=== PATIENT | female | born 1975 | race Caucasian/White ===

== ENCOUNTER 2017-01-20 13:21 | Inpatient (IN) | payer OTHER ==
[2017-01-20] MEDS ORDERED: SODIUM CHLORIDE 0.9% 1,000 ML IV STA (15:16)
--- NOTE | 2017-01-20 15:24 | ED ---
General Adult HPI - General Source: patient, RN notes reviewed Mode of arrival: ambulatory Limitations: no limitations <Larry Russell - Last Filed: 01/20/17 17:48> <Guillermo Smith - Last Filed: 01/20/17 18:27> - General Chief complaint: Abdominal Pain Stated complaint: abdominal pain Time Seen by Provider: 01/20/17 15:10 - History of Present Illness Initial comments: Patient 41-year-old female who presents emergency room today with a chief complaint of increased abdominal pain. She states that over the last 3 days and unable have bowel movement. She does admit that she's been passing small amount of gas. She does admit that she's felt nauseated. States had chills. States never had similar symptoms in the past denies any other complaints. Patient denies any recent shortness of breath, chest pain, back pain, vomiting, numbness or tingling, dysuria or hematuria, constipation or diarrhea, headaches or visual changes, or any other complaints. (Larry Russell) - Related Data Home Medications Medication Instructions Recorded Confirmed ALPRAZolam [Xanax] 0.5 mg PO DAILY PRN 01/20/17 01/20/17 Levothyroxine Sodium [Synthroid] 112 mcg PO DAILY 01/20/17 01/20/17 buPROPion HCL [Wellbutrin SR] 150 mg PO DAILY 01/20/17 01/20/17 metFORMIN HCL [Metformin HCl] 500 mg PO BID 01/20/17 01/20/17 Allergies Allergy/AdvReac Type Severity Reaction Status Date / Time No Known Allergies Allergy Verified 01/20/17 15:36 Review of Systems ROS Other: All systems not noted in ROS Statement are negative. <Larry Russell - Last Filed: 01/20/17 17:48> ROS Other: All systems not noted in ROS Statement are negative. <Guillermo Smith - Last Filed: 01/20/17 18:27> ROS Statement: Those systems with pertinent positive or pertinent negative responses have been documented in the HPI. Past Medical History Past Medical History: Thyroid Disorder History of Any Multi-Drug Resistant Organisms: None Reported Past Surgical History: Orthopedic Surgery Additional Past Surgical History / Comment(s): right knee Past Psychological History: No Psychological Hx Reported Smoking Status: Former smoker Past Alcohol Use History: None Reported Past Drug Use History: None Reported <Larry Russell - Last Filed: 01/20/17 17:48> General Exam Limitations: no limitations <Larry Russell - Last Filed: 01/20/17 17:48> <Guillermo Smith - Last Filed: 01/20/17 18:27> - General Exam Comments Initial Comments: General: The patient is awake and alert, in no distress, and does not appear acutely ill. Eye: Pupils are equal, round and reactive to light, extra-ocular movements are intact. No nystagmus. There is normal conjunctiva bilaterally. No signs of icterus. Ears, nose, mouth and throat: There are moist mucous membranes and no oral lesions. Neck: The neck is supple, there is no tenderness or JVD. Cardiovascular: There is a regular rate and rhythm. No murmur, rub or gallop is appreciated. Respiratory: Lungs are clear to auscultation, respirations are non-labored, breath sounds are equal. No wheezes, stridor, rales, or rhonchi. Gastrointestinal: No medicines abdomen. Normal bowel sounds. Abdomen soft on palpation. Patient does have tenderness midline and left lower quadrant. No rebound tenderness. No guarding. Musculoskeletal: Normal ROM, no tenderness. Strength 5/5. Sensation intact. Pulses equal bilaterally 2+. Neurological: A&O x 3. CN II-XII intact, There are no obvious motor or sensory deficits. Coordination appears grossly intact. Speech is normal. Skin: Skin is warm and dry and no rashes or lesions are noted. Psychiatric: Cooperative, appropriate mood & affect, normal judgment. (Larry Russell) Medical Decision Making - Lab Data Result diagrams: 01/20/17 15:54 01/20/17 15:54 <Larry Russell - Last Filed: 01/20/17 17:48> - Lab Data Result diagrams: 01/20/17 15:54 01/20/17 15:54 <Guillermo Smith - Last Filed: 01/20/17 18:27> - Medical Decision Making Patient's CT of the abdomen and pelvis shows moderate marked sigmoid diverticulitis with tiny extraperitoneal perforation into the sigmoid mesocolon , but without pneumoperitoneum or abscess. Labs reviewed that showed 12,000 white count. Patient's vital stable. No fever. Patient reexamined at this time resting comfortably. Will be started on antibiotics of Levaquin and Flagyl here in the emergency room. Patient will be continued on IV antibiotics admitted to the hospital with consult the surgeon. (Larry Russell) Medical decision-making. The patient had a CAT scan of the abdomen and the diagnosis per radiology is moderate marked sigmoid diverticulitis, with tiny extraperitoneal perforation into the sigmoid mesocolon, but without pneumoperitoneum or abscess. As read by Dr. Angel Lo. The case will be admitted to Dr. garland service, I spoke to Maddy nurse practitioner, and on-[facility] - Lab Data Lab Results 01/20/17 01/20/17 01/20/17 Range/Units 15:54 15:54 15:54 WBC 12.3 H (3.8-10.6) k/uL RBC 4.46 (3.80-5.40) m/uL Hgb 13.7 (11.4-16.0) gm/dL Hct 41.5 (34.0-46.0) % MCV 93.1 (80.0-100.0) fL MCH 30.7 (25.0-35.0) pg MCHC 33.0 (31.0-37.0) g/dL RDW 13.2 (11.5-15.5) % Plt Count 345 (150-450) k/uL Neutrophils % 75 % Lymphocytes % 13 % Monocytes % 7 % Eosinophils % 2 % Basophils % 1 % Neutrophils # 9.2 H (1.3-7.7) k/uL Lymphocytes # 1.6 (1.0-4.8) k/uL Monocytes # 0.9 (0-1.0) k/uL Eosinophils # 0.3 (0-0.7) k/uL Basophils # 0.1 (0-0.2) k/uL Sodium 139 (137-145) mmol/L Potassium 4.0 (3.5-5.1) mmol/L Chloride 104 (98-107) mmol/L Carbon Dioxide 24 (22-30) mmol/L Anion Gap 11 mmol/L BUN 9 (7-17) mg/dL Creatinine 0.58 (0.52-1.04) mg/dL Est GFR (MDRD) Af Amer >60 (>60 ml/min/1.73 sqM) Est GFR (MDRD) Non-Af >60 (>60 ml/min/1.73 sqM) Glucose 89 (74-99) mg/dL Calcium 9.4 (8.4-10.2) mg/dL Total Bilirubin 0.5 (0.2-1.3) mg/dL AST 25 (14-36) U/L ALT 34 (9-52) U/L Alkaline Phosphatase 81 (38-126) U/L Total Protein 6.8 (6.3-8.2) g/dL Albumin 3.9 (3.5-5.0) g/dL Amylase 46 (30-110) U/L Lipase 58 (23-300) U/L Urine Color Yellow Urine Appearance Cloudy H (Clear) Urine pH 5.5 (5.0-8.0) Ur Specific [place] 1.013 (1.001-1.035) Urine Protein Trace H (Negative) Urine Glucose (UA) Negative (Negative) Urine Ketones Negative (Negative) Urine Blood Negative (Negative) Urine Nitrite Negative (Negative) Urine Bilirubin Negative (Negative) Urine Urobilinogen <2.0 (<2.0) mg/dL Ur Leukocyte Esterase Moderate H (Negative) Urine RBC 2 (0-5) /hpf Urine WBC 20 H (0-5) /hpf Ur Squamous Epith Cells 12 H (0-4) /hpf Urine HCG, Qual (Not Detectd) 01/20/17 Range/Units 15:54 WBC (3.8-10.6) k/uL RBC (3.80-5.40) m/uL Hgb (11.4-16.0) gm/dL Hct (34.0-46.0) % MCV (80.0-100.0) fL MCH (25.0-35.0) pg MCHC (31.0-37.0) g/dL RDW (11.5-15.5) % Plt Count (150-450) k/uL Neutrophils % % Lymphocytes % % Monocytes % % Eosinophils % % Basophils % % Neutrophils # (1.3-7.7) k/uL Lymphocytes # (1.0-4.8) k/uL Monocytes # (0-1.0) k/uL Eosinophils # (0-0.7) k/uL Basophils # (0-0.2) k/uL Sodium (137-145) mmol/L Potassium (3.5-5.1) mmol/L Chloride (98-107) mmol/L Carbon Dioxide (22-30) mmol/L Anion Gap mmol/L BUN (7-17) mg/dL Creatinine (0.52-1.04) mg/dL Est GFR (MDRD) Af Amer (>60 ml/min/1.73 sqM) Est GFR (MDRD) Non-Af (>60 ml/min/1.73 sqM) Glucose (74-99) mg/dL Calcium (8.4-10.2) mg/dL Total Bilirubin (0.2-1.3) mg/dL AST (14-36) U/L ALT (9-52) U/L Alkaline Phosphatase (38-126) U/L Total Protein (6.3-8.2) g/dL Albumin (3.5-5.0) g/dL Amylase (30-110) U/L Lipase (23-300) U/L Urine Color Urine Appearance (Clear) Urine pH (5.0-8.0) Ur Specific [place] (1.001-1.035) Urine Protein (Negative) Urine Glucose (UA) (Negative) Urine Ketones (Negative) Urine Blood (Negative) Urine Nitrite (Negative) Urine Bilirubin (Negative) Urine Urobilinogen (<2.0) mg/dL Ur Leukocyte Esterase (Negative) Urine RBC (0-5) /hpf Urine WBC (0-5) /hpf Ur Squamous Epith Cells (0-4) /hpf Urine HCG, Qual Not Detected (Not Detectd) Disposition Time of Disposition: 17:45 <Larry Russell - Last Filed: 01/20/17 17:48> <Guillermo Smith - Last Filed: 01/20/17 18:27> Clinical Impression: Acute diverticulitis Disposition[facility] Condition: Stable Referrals: Tiarra Espinoza DO [Primary Care Provider] - 1-2 days
[2017-01-20 16:22] LABS: Basophils # (A) 0.1 k/uL (0-0.2); Basophils % (A) 1 %; CH 31.4; CHCM 33.8; Eosinophils # (A) 0.3 k/uL (0-0.7); Eosinophils % (A) 2 %; HCT 41.5 % (34.0-46.0); HDW 2.11; HGB 13.7 gm/dL (11.4-16.0); Luc % (Auto) 2; Lymphocytes # (A) 1.6 k/uL (1.0-4.8); Lymphocytes % (A) 13 %; MCH 30.7 pg (25.0-35.0); MCV 93.1 fL (80.0-100.0); Mean Platelet Volume 6.8; Monocytes # (A) 0.9 k/uL (0-1.0); Monocytes % (A) 7 %; Neutrophils # (A) 9.2 k/uL (1.3-7.7); Neutrophils % (A) 75 %; RBC 4.46 m/uL (3.80-5.40); RDW 13.2 % (11.5-15.5); WBC 12.3 k/uL (3.8-10.6); WBC (Perox) 11.44
[2017-01-20 16:28] LABS: Appearance,Urine Cloudy (Clear); Bilirubin,Urine Negative (Negative); Glucose,Urine (UA) Negative (Negative); Ketones,Urine Negative (Negative); Leukocyte Esterase,Urine Moderate (Negative); Nitrite,Urine Negative (Negative); PH, Urine 5.5 (5.0-8.0); Particle Count 7655; Protein,Urine Trace (Negative); RBC,Urine 2 /hpf (0-5); Specific Gravity,Urine 1.013 (1.001-1.035); Squamous Epithelial Cell,Urine 12 /hpf (0-4); UA Billing (MACRO vs. MICRO) MICRO; Urobilinogen,Urine <2.0 mg/dL (<2.0); WBC,Urine 20 /hpf (0-5)
[2017-01-20 16:32] LABS: ALT 34 U/L (9-52); AST 25 U/L (14-36); Alkaline Phosphatase 81 U/L (38-126); Amylase 46 U/L (30-110); Anion Gap 11 mmol/L; Blood Urea Nitrogen 9 mg/dL (7-17); Calcium 9.4 mg/dL (8.4-10.2); Carbon Dioxide 24 mmol/L (22-30); Chloride 104 mmol/L (98-107); Glucose 89 mg/dL (74-99); Non-African American GFR(MDRD) >60 (>60 ml/min/1.73 sqM); Sodium 139 mmol/L (137-145); Total Bilirubin 0.5 mg/dL (0.2-1.3); Total Protein 6.8 g/dL (6.3-8.2)
[2017-01-20] MEDS ORDERED: RX INFO: IV CONTRAST WAS GIVEN 1 EACH MISC MISCELLANE PRN (16:42)
--- NOTE | 2017-01-20 17:39 | CT ---
EXAMINATION TYPE: CT abdomen pelvis w con DATE OF EXAM: 01/20/2017 COMPARISON: NONE HISTORY: Constipation and abdominal distention x3 days CT DLP: 1272.9 mGycm Automated exposure control for dose reduction was used. TECHNIQUE: Helical acquisition of images was performed from the lung bases through the pelvis. CONTRAST: Performed without Oral Contrast and with IV Contrast, patient injected with 100 mL of Omnipaque 300. FINDINGS: LUNG BASES: No significant abnormality is appreciated. LIVER/GB: No significant abnormality is appreciated. PANCREAS: No significant abnormality is seen. SPLEEN: No significant abnormality is seen. ADRENALS: No significant abnormality is seen. KIDNEYS: No significant abnormality is seen. FREE AIR: No free air is visualized. RETROPERITONEAL ADENOPATHY: None visualized REPRODUCTIVE ORGANS: No significant abnormality is seen URINARY BLADDER: No significant abnormality is seen. PELVIC ADENOPATHY: None visualized. OSSEOUS STRUCTURES: No significant abnormality is seen. BOWEL: There is moderate-marked reticulation of the sigmoid mesocolon immediately cephalad to the mi d sigmoid, with tiny gas bubbles within the sigmoid mesocolon. There is no pneumoperitoneum. There is no pneumatosis. No bowel obstruction and no focal fluid collections. Remainder of the hollow viscer a are unremarkable. IMPRESSION: MODERATE-MARKED SIGMOID DIVERTICULITIS, WITH TINY EXTRAPERITONEAL PERFORATION INTO THE SIGMOID [place] ANTOINETTE, BUT WITHOUT PNEUMOPERITONEUM OR ABSCESS.
[2017-01-20] MEDS ORDERED: metroNIDAZOLE-NS PMX 500 MG in SALINE 1 100ML.BAG IVPB STA (17:48)
[2017-01-20] MEDS ORDERED: LEVOFLOXACIN 500MG-D5W PMX 500 MG in DEXTROSE/WATER 1 100ML.BAG IVPB STA (17:48)
[2017-01-20] MEDS ORDERED: ONDANSETRON 4 MG/2 ML VIAL IVP PRN (18:02)
[2017-01-20] MEDS ORDERED: HYDROmorphone 1 MG/ML 1 ML SYRINGE IV PRN (18:02)
[2017-01-20] MEDS ORDERED: NALOXONE 0.4 MG/ML 1 ML VIAL IV PRN (18:02)
[2017-01-20] MEDS ORDERED: SODIUM CHLORIDE 0.9% 1,000 ML IV ONE (18:02)
[2017-01-20 20:29] VITALS: BMI 33.9
--- NOTE | 2017-01-20 20:30 | P.GSCN ---
History of Present Illness Consult date: 01/20/17 Reason for Consult: Diverticulitis. Requesting physician: Harjeet Sierra History of present illness: The patient is a 41-year-old female who comes to the hospital after developing increasing abdominal pain particularly of the left lower quadrant. She reports having a prior colonoscopy over 10 years ago where polyps were identified including diverticulosis. In the last 2 days she reports her abdominal pain has been worse since her presentation. She completed a CT of the abdomen and pelvis demonstrated a microperforation with diverticulitis. She reports intermittent obstructions. Since admission, her abdominal pain has improved. Review of Systems CONSTITUTIONAL: Denies any fever or chills. Denies recent weight loss. HEENT: Denies any trouble with vision, hearing or nosebleeds. No difficulty swallowing. LYMPHATIC: The patient denies any lumps and bumps around the neck. ENDOCRINE: Has thyroid disorders. Has blood sugar glucose intolerance. RESPIRATORY: Denies pneumonia. Denies any troubles with breathing or dyspnea on exertion. CARDIOVASCULAR: Denies any chest pain, palpitations, or recent heart attacks. GASTROINTESTINAL: Reports intermittent constipation as well as bowel blockages. Last colonoscopy over 10 years ago with polyps. GENITOURINARY: Denies any blood in urine or increased urinary frequency. MUSCULOSKELETAL: Denies any back pain, stiffness, joint arthritis. NEUROLOGIC: Denies any numbness or tingling along the distal extremities. No seizure disorders or headaches. PSYCHIATRIC: Has depression. No suidical ideation. Has anxiety. HEMATOLOGIC: Denies any abnormal bleeding or bruising. Past Medical History Past Medical History: Thyroid Disorder History of Any Multi-Drug Resistant Organisms: None Reported Past Surgical History: Orthopedic Surgery Additional Past Surgical History / Comment(s): right knee Past Psychological History: No Psychological Hx Reported Smoking Status: Former smoker Past Alcohol Use History: None Reported Past Drug Use History: None Reported Medications and Allergies Home Medications Medication Instructions Recorded Confirmed Type ALPRAZolam [Xanax] 0.5 mg PO DAILY PRN 01/20/17 01/20/17 History Levothyroxine Sodium [Synthroid] 112 mcg PO DAILY 01/20/17 01/20/17 History buPROPion HCL [Wellbutrin SR] 150 mg PO DAILY 01/20/17 01/20/17 History metFORMIN HCL [Metformin HCl] 500 mg PO BID 01/20/17 01/20/17 History Allergies Allergy/AdvReac Type Severity Reaction Status Date / Time No Known Allergies Allergy Verified 01/20/17 15:36 Surgical - Exam Vital Signs Temp Pulse Resp BP Pulse Ox 98.4 F 90 20 132/86 99 01/20/17 13:43 01/20/17 13:43 01/20/17 13:43 01/20/17 13:43 01/20/17 13:43 GENERAL: Well developed and in no acute distress. Pleasant. HEENT: No sclera icterus. Extraocular movements grossly intact. Moist buccal mucosa. Head is atraumatic, normocephalic. Hears conversational speech. No nasal drainage. NECK: Supple without lymphadenopathy. No JV distention. CHEST: Non-labored respirations and equal bilateral excursions. CARDIOVASCULAR: Regular rate and rhythm. Palpable 2+ radial pulses. ABDOMEN: Soft. Nondistended. No diffuse tenderness or peritonitis. No guarding of the left lower quadrant. MUSCULOSKELETAL: No clubbing, cyanosis or edema. NEUROLOGIC: No focal or lateralizing signs. PSYCH: Appropriate affect. Alert and oriented to person, place and time. Results - Labs 01/20/17 15:54 01/20/17 15:54 Abnormal Lab Results - Last 24 Hours (Table) 01/20/17 01/20/17 Range/Units 15:54 15:54 WBC 12.3 H (3.8-10.6) k/uL Neutrophils # 9.2 H (1.3-7.7) k/uL Urine Appearance Cloudy H (Clear) Urine Protein Trace H (Negative) Ur Leukocyte Esterase Moderate H (Negative) Urine WBC 20 H (0-5) /hpf Ur Squamous Epith Cells 12 H (0-4) /hpf Diabetes panel 01/20/17 Range/Units 15:54 Sodium 139 (137-145) mmol/L Potassium 4.0 (3.5-5.1) mmol/L Chloride 104 (98-107) mmol/L Carbon Dioxide 24 (22-30) mmol/L BUN 9 (7-17) mg/dL Creatinine 0.58 (0.52-1.04) mg/dL Glucose 89 (74-99) mg/dL Calcium 9.4 (8.4-10.2) mg/dL AST 25 (14-36) U/L ALT 34 (9-52) U/L Alkaline Phosphatase 81 (38-126) U/L Total Protein 6.8 (6.3-8.2) g/dL Albumin 3.9 (3.5-5.0) g/dL Calcium panel 01/20/17 Range/Units 15:54 Calcium 9.4 (8.4-10.2) mg/dL Albumin 3.9 (3.5-5.0) g/dL Pituitary panel 01/20/17 Range/Units 15:54 Sodium 139 (137-145) mmol/L Potassium 4.0 (3.5-5.1) mmol/L Chloride 104 (98-107) mmol/L Carbon Dioxide 24 (22-30) mmol/L BUN 9 (7-17) mg/dL Creatinine 0.58 (0.52-1.04) mg/dL Glucose 89 (74-99) mg/dL Calcium 9.4 (8.4-10.2) mg/dL Adrenal panel 01/20/17 Range/Units 15:54 Sodium 139 (137-145) mmol/L Potassium 4.0 (3.5-5.1) mmol/L Chloride 104 (98-107) mmol/L Carbon Dioxide 24 (22-30) mmol/L BUN 9 (7-17) mg/dL Creatinine 0.58 (0.52-1.04) mg/dL Glucose 89 (74-99) mg/dL Calcium 9.4 (8.4-10.2) mg/dL Total Bilirubin 0.5 (0.2-1.3) mg/dL AST 25 (14-36) U/L ALT 34 (9-52) U/L Alkaline Phosphatase 81 (38-126) U/L Total Protein 6.8 (6.3-8.2) g/dL Albumin 3.9 (3.5-5.0) g/dL - Imaging CT scan - abdomen: report reviewed, image reviewed CT scan - pelvis: report reviewed, image reviewed (Localized perforation of the sigmoid colon without diffuse for air.) Assessment and Plan (1) Hypothyroidism Status: Acute (2) Diabetes type 2, controlled Status: Acute (3) Obesity (BMI 30.0-34.9) Status: Acute (4) History of colonic polyps Status: Acute (5) Acute diverticulitis Status: Acute Plan: 1. Clinically, her abdominal pain has improved. No acute surgical intervention needed. 2. I discussed with her outpatient colonoscopy at least 6 weeks after her acute event. 3. Nothing by mouth for tonight however may start clear liquid in the morning. 4. Recommend antibiotics including as outpatient at least for 2 weeks. 5. Will follow in the interim. Thank you for this kind consultation.
[2017-01-20] MEDS ORDERED: ALPRAZolam 0.5 MG TAB PO PRN (21:36)
[2017-01-20] MEDS: ENOXAPARIN 40 MG/0.4 ML SYRINGE SQ SCH (22:38)
[2017-01-21] MEDS: metroNIDAZOLE-NS PMX 500 MG in SALINE 1 100ML.BAG IVPB SCH ×3 (00:11→16:03)
[2017-01-21 04:43] VITALS: RESP 16
--- NOTE | 2017-01-21 05:53 | HP ---
DATE OF ADMISSION: 01/20/2017 PRESENTING COMPLAINT: Abdominal pain. HISTORY OF PRESENTING COMPLAINT: This is a 41-year-old patient of Dr. Espinoza. Chronic stable medical conditions include hypothyroid, possibly metabolic syndrome, depression, anxiety. Four days started increasing lower abdominal pain, first 2 days the pain became severe. Patient has had ( ), settled down a bit then developed a fever then pain came back and worse again. Patient decided to come in. CT scan of the abdomen confirmed a diverticulitis with maybe microperforation. Patient made n.p.o. and admitted with IV antibiotics. Daughter is at the bedside. Has had some slight nausea, no vomiting. REVIEW OF SYSTEMS: CONSTITUTIONAL: Fever, tired. HEENT: None. RESPIRATORY: None. CARDIOVASCULAR: None. GASTROINTESTINAL: As above. GENITOURINARY: None. MUSCULOSKELETAL: None. DERMATOLOGIC: None. HEMATOLOGIC: None. LYMPHATIC: None. PSYCHIATRY: None. NEUROLOGICAL: None. PAST MEDICAL HISTORY: Hypothyroid, depression, anxiety. PAST SURGICAL HISTORY: Orthopedic surgery right knee. SOCIAL HISTORY: Smoked for 20 years about a pack a day; stopped 16 years ago. 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 with 2 children at home. FAMILY HISTORY: Pancreatic cancer. HOME MEDICATIONS: 1. Metformin 500 mg b.i.d. 2. Wellbutrin SR 150 mg daily. 3. Synthroid 112 mcg p.o. daily. 4. Xanax 0.5 p.o. daily p.r.n. ALLERGIES: None. ON EXAMINATION: VITAL SIGNS ON PRESENTATION: Temperature 98.4, pulse 90, respiration 20, blood pressure 132/86, pulse ox 99% on room air. GENERAL APPEARANCE: Well built, BMI of 33.9, sitting up, tired appearing. EYES: Pupils equal. Conjunctivae normal. HEENT: Oral cavity normal. NECK: JVD not raised. Mass not palpable. RESPIRATORY: Effort normal. LUNGS: Slightly decreased breath sounds. CARDIOVASCULAR: First and second sounds normal. No edema. ABDOMEN: Left-sided tenderness. No guarding or rigidity. Liver and spleen not palpable. LYMPHATIC: No lymph nodes palpable of the neck or axillae. PSYCHIATRY: Alert and oriented x3. Mood and affect normal. NEUROLOGICAL: Pupils equal. Cranial nerves grossly intact. Power and sensation grossly intact. INVESTIGATIONS: White count 12.3, hemoglobin 13.7. Potassium 4.0. BUN and creatinine are normal. UA ( ) leukocyte esterase and squamous epithelial. CT scan of the abdomen and pelvis moderate marked reticulation of the sigmoid mesocolon with tiny gas bubble. ASSESSMENT: 1. Acute severe sigmoid diverticulitis with extraperitoneal perforation with no obvious abscess formation. 2. Hypothyroidism. 3. Possibly metabolic syndrome. 4. Depression, anxiety, not otherwise specified. PLAN: Patient was put on IV Levaquin and Flagyl, IV fluids, made n.p.o. General surgery was consulted. Home medications are resumed. Care was discussed with the patient and care plan was discussed.
[2017-01-21] MEDS ORDERED: LEVOTHYROXINE 112 MCG TAB PO SCH (06:30)
[2017-01-21 07:05] LABS: Basophils % (A) 0 %; CH 31.3; CHCM 34.2; Eosinophils # (A) 0.3 k/uL (0-0.7); Eosinophils % (A) 3 %; HCT 38.7 % (34.0-46.0); HDW 2.23; HGB 12.9 gm/dL (11.4-16.0); Luc # (Auto) 0.23; Luc % (Auto) 3; Lymphocytes # (A) 1.2 k/uL (1.0-4.8); Lymphocytes % (A) 15 %; MCH 30.7 pg (25.0-35.0); MCHC 33.3 g/dL (31.0-37.0); Mean Platelet Volume 6.3; Monocytes # (A) 0.7 k/uL (0-1.0); Monocytes % (A) 8 %; Neutrophils # (A) 5.6 k/uL (1.3-7.7); Neutrophils % (A) 71 %; RBC 4.21 m/uL (3.80-5.40); RDW 12.9 % (11.5-15.5); WBC (Perox) 8.47
[2017-01-21 07:19] LABS: ALT 34 U/L (9-52); AST 21 U/L (14-36); Alkaline Phosphatase 65 U/L (38-126); Anion Gap 7 mmol/L; Blood Urea Nitrogen 6 mg/dL (7-17); Calcium 8.7 mg/dL (8.4-10.2); Carbon Dioxide 24 mmol/L (22-30); Chloride 110 mmol/L (98-107); Glucose 92 mg/dL (74-99); Non-African American GFR(MDRD) >60 (>60 ml/min/1.73 sqM); Potassium 4.1 mmol/L (3.5-5.1); Sodium 141 mmol/L (137-145); Total Bilirubin 0.6 mg/dL (0.2-1.3); Total Protein 5.9 g/dL (6.3-8.2)
[2017-01-21] MEDS: metFORMIN 500 MG TAB PO SCH ×2 (07:26→18:34)
[2017-01-21] MEDS: ENOXAPARIN 40 MG/0.4 ML SYRINGE SQ SCH (08:17)
[2017-01-21] MEDS ORDERED: buPROPion SR 150 MG TABLET.ER PO SCH (09:00)
--- NOTE | 2017-01-21 11:58 | P.PN ---
Subjective 41-year-old female being seen this morning states abdominal pain has significantly improved tolerating a clear liquid diet being seen at the request of the attending for abdominal pain. CAT scan of the abdomen pelvis has been reviewed. Shows localized perforation of the sigmoid colon without diffuse air. Was no surgical intervention needed at this time. The plan of care was reinforced with the patient patient will be seen in the outpatient setting in 4-6 weeks at that time would discussed out patient colonoscopy patient states passing gas but no stool Objective - Vital Signs Vital signs: Vital Signs Temp 97.3 F L 01/21/17 07:25 Pulse 72 01/21/17 07:25 Resp 16 01/21/17 07:25 BP 140/73 01/21/17 07:25 Pulse Ox 99 01/21/17 07:25 Intake & Output 01/20/17 01/21/17 01/21/17 18:59 06:59 18:59 Intake Total 100 Balance 100 Weight 95.254 kg Intake: Intake, IV Titration 100 Amount metroNIDAZOLE-NS PMX 500 100 mg In Saline 1 100ml.bag @ 100 mls/hr IVPB Q8HR DALI Rx#:[id number] Oral 0 Other: Voiding Method Toilet # Voids 1 2 - Exam Physical exam 41-year-old female resting in bed appears in no acute distress states abdominal pain has improved Lungs essentially clear adequate air movement sats are 99% on room air Heart S1-S2 audible regular Abdomen soft nontender not distended bowel tones present passing gas no stool tolerating diet of clear liquids states hungry Extremities no edema noted - Labs CBC & Chem 7: 01/21/17 06:36 01/21/17 06:36 Labs: Abnormal Lab Results - Last 24 Hours (Table) 01/20/17 01/20/17 01/21/17 Range/Units 15:54 15:54 06:36 WBC 12.3 H (3.8-10.6) k/uL Neutrophils # 9.2 H (1.3-7.7) k/uL Chloride 110 H (98-107) mmol/L BUN 6 L (7-17) mg/dL Total Protein 5.9 L (6.3-8.2) g/dL Albumin 3.3 L (3.5-5.0) g/dL Urine Appearance Cloudy H (Clear) Urine Protein Trace H (Negative) Ur Leukocyte Esterase Moderate H (Negative) Urine WBC 20 H (0-5) /hpf Ur Squamous Epith Cells 12 H (0-4) /hpf Assessment and Plan Plan: Impression Present on admission abdominal pain suspect due to localized perforation of the sigmoid colon without diffuse air Obesity BMI 33 Abdominal pain present on admission likely due to Acute diverticulitis as evident on a CAT scan of the abdomen pelvis Type 2 diabetes controlled History of colon polyps Plan Continue antibiotics in the outpatient setting for at least 2 weeks Clear liquid diet could be advanced as tolerated Outpatient follow-up with Dr. Olea in 6 weeks for outpatient colonoscopy No surgical intervention indicated at this time Will follow in the interim The above dictated assessment and findings were discussed with dr Olea. Impression and the plan of care have been dictated as directed. Megan Sanford nurse practitioner acting as a scribe for Lefty
[2017-01-21] MEDS ORDERED: LEVOFLOXACIN 500MG-D5W PMX 500 MG in DEXTROSE/WATER 1 100ML.BAG IVPB SCH (18:00)
--- NOTE | 2017-01-21 20:45 | P.PN ---
Progress Note - Text Patient seen and evaluated. She is tolerating diet. She is passing flatus. She had a bowel movement. Abdominal pain improved. Agreeable with discharge with follow-up in the office in 1 week.
--- NOTE | 2017-01-21 20:46 | P.DS ---
Providers Date of admission: 01/20/17 18:19 Expected date of discharge: 01/21/17 Attending physician: Harjeet Sierra Consults: 01/20/17 18:17 Consult Physician Routine Consulting Provider: Johanna Olea Consult Reason/Comments: Reticulitis Do you want consulting provider notified?: Yes Primary care physician: Tiarra Espinoza - Discharge Diagnosis(es) (1) Hypothyroidism Current Visit: Yes Status: Acute (2) Diabetes type 2, controlled Current Visit: Yes Status: Acute (3) Obesity (BMI 30.0-34.9) Current Visit: Yes Status: Acute (4) History of colonic polyps Current Visit: Yes Status: Acute (5) Acute diverticulitis Current Visit: Yes Status: Acute Hospital Course: The patient is a 41-year-old female who presented with acute onset left lower quadrant abdominal pain for several days. CT of the abdomen and pelvis was consistent with acute diverticulitis. General surgery was consulted. She was placed on antibiotics which she responded well. Prior to discharge, she was passing flatus, having bowel movements, and tolerating diet. Her abdominal pain had resolved. Pertinent Studies: CT of the abdomen and pelvis consistent with perforated diverticulitis Patient Condition at Discharge: Stable Plan - Discharge Summary New Discharge Prescriptions: New Ciprofloxacin HCl [Cipro] 500 mg PO Q12HR #20 tablet metroNIDAZOLE [Flagyl] 500 mg PO TID #30 tab No Action Levothyroxine Sodium [Synthroid] 112 mcg PO DAILY ALPRAZolam [Xanax] 0.5 mg PO DAILY PRN PRN Reason: Anxiety metFORMIN HCL [Metformin HCl] 500 mg PO BID buPROPion HCL [Wellbutrin SR] 150 mg PO DAILY Discharge Medication List ALPRAZolam [Xanax] 0.5 mg PO DAILY PRN 01/20/17 [History] Levothyroxine Sodium [Synthroid] 112 mcg PO DAILY 01/20/17 [History] buPROPion HCL [Wellbutrin SR] 150 mg PO DAILY 01/20/17 [History] metFORMIN HCL [Metformin HCl] 500 mg PO BID 01/20/17 [History] Ciprofloxacin HCl [Cipro] 500 mg PO Q12HR #20 tablet 01/21/17 [Rx] metroNIDAZOLE [Flagyl] 500 mg PO TID #30 tab 01/21/17 [Rx] Follow up Appointment(s)/Referral(s): Tiarra Espinoza DO [Primary Care Provider] - 1-2 days Johanna Olea MD [STAFF PHYSICIAN] - 01/28/17 (Please call to confirm a time) Patient Instructions/Handouts: Diverticulitis (DC), Diverticulitis Diet (DC), Perforated Bowel (DC) Activity/Diet/Wound Care/Special Instructions: Avoid steak, heavy meats. Recommend soups, broth, yogurt and liquids until seen by surgeon. Discharge Disposition: HOME SELF-CARE
[2017-01-21 21:36] VITALS: BP 142/82; PULSE 66; TEMP 98.2
--- NOTE | 2017-01-21 22:10 | PN ---
DATE OF SERVICE: 01/21/2017 PRESENTING COMPLAINT: Abdominal pain. INTERVAL HISTORY: This is a patient who presented with acute diverticulitis with a microperforation. Abdominal pain is better. Has not had a bowel movement, getting IV antibiotics. Did try some clear liquids. Review of systems done for constitutional, cardiovascular, GI, pulmonary; relevant findings as above. Current medications are reviewed that include: 1. IV Levaquin and 2. IV Flagyl. On examination, temperature 97.3, pulse 72, respirations 16, blood pressure 140/73, pulse ox 99% on room air. GENERAL APPEARANCE: Lying in bed, not in distress. EYES: Pupils equal. Conjunctivae normal. NECK: JVD not raised. Mass not palpable. RESPIRATORY: Effort normal. LUNGS: Slightly decreased breath sounds. CARDIOVASCULAR: First and second sounds normal. No edema. ABDOMEN: Left-sided deep tenderness. No guarding or rigidity. Liver and spleen not palpable. PSYCHIATRY: Alert and oriented x3. Mood and affect normal. INVESTIGATIONS: White count 8, hemoglobin 12.9. Potassium 4.1. ASSESSMENT: 1. Acute severe sigmoid diverticulitis with extraperitoneal perforation with clinical improvement. 2. Hypothyroidism. 3. Possibly metabolic syndrome. 4. Depression, anxiety, not otherwise specified. Continue the patient on IV antibiotics. Diet is being advanced per Surgery. Will watch the patient today, see how she does tomorrow. Patient encouraged to get out of bed.
== END 2017-01-21 21:00 | disposition home or self-care (01) | DRG 392 ==
LOC: EC 13:21 → 6PED 18:19
PROVIDERS: ADMIT Hospitalist; ATTEND Hospitalist
DX: K57.20 Diverticulitis of large intestine with perforation and abscess without bleeding (principal); F32.9 Major depressive disorder, single episode, unspecified; E03.9 Hypothyroidism, unspecified; F41.9 Anxiety disorder, unspecified; E11.9 Type 2 diabetes mellitus without complications; E66.9 Obesity, unspecified; Z68.33 Body mass index [BMI] 33.0-33.9, adult; Z87.891 Personal history of nicotine dependence; Z86.010 Personal history of colon polyps; Z79.84 Long term (current) use of oral hypoglycemic drugs; Z79.899 Other long term (current) drug therapy; Z80.0 Family history of malignant neoplasm of digestive organs
CPT/HCPCS: 36415; 74177; 80053; 81001; 81025; 82150; 83690; 85025; 87040; 96361; 96365; 99285

== ENCOUNTER 2017-02-26 10:37 | Day surgery (SDC) | payer OTHER ==
[2017-02-25 09:09] VITALS: BMI 34.2
--- NOTE | 2017-02-26 08:36 | P.GSHP ---
History of Present Illness H&P Date: 02/26/17 CHIEF COMPLAINT: GERD and change in bowel habits HISTORY OF PRESENT ILLNESS: The patient is a 41-year-old female who presents reports gastroesophageal reflux disease and change in bowel habits. Upper and lower endoscopy were offered for further evaluation and management. PAST MEDICAL HISTORY: Please see list. PAST SURGICAL HISTORY: Please see list. MEDICATIONS: Please see list. ALLERGIES: Please see list. SOCIAL HISTORY: No illicit drug use FAMILY HISTORY: No reports of Crohn disease or ulcerative colitis. REVIEW OF ORGAN SYSTEMS: CONSTITUTIONAL: No reports of fevers or chills. GI: Denies any blood in stools or constipation. PHYSICAL EXAM: VITAL SIGNS: Stable GENERAL: Well-developed pleasant in no acute distress. HEENT: No scleral icterus. Extraocular movements grossly intact. Moist buccal mucosa. NECK: Supple without lymphadenopathy. CHEST: Unlabored respirations. Equal bilateral excursions. CARDIOVASCULAR: Regular rate and rhythm. Distal 2+ pulses. ABDOMEN: Soft, nondistended. MUSCULOSKELETAL: No clubbing, cyanosis, or edema. ASSESSMENT: 1. Gastroesophageal reflux disease 2. Change in bowel habits. PLAN: 1. Recommend proceeding with an upper and lower endoscopy Past Medical History Past Medical History: GERD/Reflux, Osteoarthritis (OA), Thyroid Disorder Additional Past Medical History / Comment(s): DIVERTICULITS (HOSPITALIZED 01/20-., STATES NO DIABETES-TAKING METFORMIN FOR WEIGHT LOSS). , STATES HERPES- NO CURRENT OUTBREAK. History of Any Multi-Drug Resistant Organisms: None Reported Past Surgical History: Orthopedic Surgery, Tonsillectomy Additional Past Surgical History / Comment(s): right knee (HEMATOMA), COLONOSCOPY WITH POLYPS. Past Anesthesia/Blood Transfusion Reactions: No Reported Reaction Past Psychological History: No Psychological Hx Reported Additional Psychological History / Comment(s): . Smoking Status: Former smoker Past Alcohol Use History: Occasional Additional Past Alcohol Use History / Comment(s): QUIT SMOKING 12 YEARS AGO(2004 ). SMOKED 1 PPD., SMOKED APPROX 20 YEARS. Past Drug Use History: Marijuana Additional Drug Use History / Comment(s): CURRENT MARIJUANA USE. - Past Family History Father Family Medical History: Cancer Additional Family Medical History / Comment(s): Pancreatic Cancer Mother Family Medical History: Cancer Additional Family Medical History / Comment(s): Stomach Cancer Sister(s) Family Medical History: Cancer Additional Family Medical History / Comment(s): 1 SISTER= KIDNEY CANCER. 1 SISTER= TONGUE CANCER Medications and Allergies Home Medications Medication Instructions Recorded Confirmed Type ALPRAZolam [Xanax] 0.5 mg PO DAILY PRN 01/20/17 02/25/17 History Levothyroxine Sodium [Synthroid] 112 mcg PO DAILY 01/20/17 02/25/17 History metFORMIN HCL [Metformin HCl] 500 mg PO BID 01/20/17 02/25/17 History Rx For Herpes (Unknown Name) 1 tab PO DAILY 02/25/17 History Allergies Allergy/AdvReac Type Severity Reaction Status Date / Time No Known Allergies Allergy Verified 02/25/17 08:58
[~2017-02-26 10:37] MED LIST: LACTATED RINGERS 1,000 ML IV SCH; LIDOCAINE 1% 20 ML VIAL (10MG/ML) FOR IV START INTRADERMA PRN
[2017-02-26 11:09] VITALS: RESP 16; TEMP 98
[2017-02-26] MEDS ORDERED: LIDOCAINE 1% INJ 10MG/ML (20 ML MDV) ONE (11:10)
[2017-02-26] MEDS ORDERED: PROPOFOL 10 MG/ML 20 ML VIAL IV ONE (11:10)
--- NOTE | 2017-02-26 11:19 | P.PCN ---
Date of Procedure: 02/26/17 Preoperative Diagnosis: Postoperative Diagnosis: Procedure(s) Performed: Implants: Indications for Procedure: Operative Findings: Description of Procedure: PREOPERATIVE DIAGNOSIS: Gastroesophageal reflux disease. POSTOPERATIVE DIAGNOSIS: Gastritis. Gastroesophageal reflux disease. Diaphragmatic hiatal hernia without obstruction. OPERATION: Esophagogastroduodenoscopy with biopsies along antrum. SURGEON: Johanna Olea MD ANESTHESIA: MAC. INDICATIONS: The patient is a 41-year-old female who presents with a history of reflux disease. Benefits and risks of the procedure were described. Informed consent was obtained. DESCRIPTION: The patient was brought into the endoscopy suite and laid in the left lateral decubitus position. An Olympus gastroscope was passed along the posterior oropharynx down to the distal esophagus where the squamocolumnar junction was encountered at 37 cm from the incisors. The stomach was entered and no bile reflux was found. Additional findings are listed below. Biopsies with cold forceps were obtained of the antrum. The first through third portion of the duodenum was examined and unremarkable. Retroflexion of the scope confirmed Hill grade 4 lower esophageal valve. The squamocolumnar junction demostrated LA grade A erosive esophagitis. The stomach was desufflated. The patient tolerated the procedure well. FINDINGS: Squamocolumnar junction 37 cm from the incisors. Diaphragmatic hiatus at 40 cm. Hiatal hernia 3 cm, fixed. Hill grade 4 lower esophageal valve. LA grade A erosive esophagitis. No active duodenitis. Chronic gastritis. RECOMMENDATIONS: Further recommendations pending results of pathology report. Upper endoscopy as needed. Will benefit from antireflux surgical procedure
[2017-02-26 11:22] LABS: Glucose,Whole Blood 104 mg/dL (75-99)
--- NOTE | 2017-02-26 11:37 | P.PCN ---
Date of Procedure: 02/26/17 Preoperative Diagnosis: Postoperative Diagnosis: Procedure(s) Performed: Implants: Indications for Procedure: Operative Findings: Description of Procedure: PREOPERATIVE DIAGNOSIS: Diverticulitis. Personal history of colon polyps. Family history of gastrointestinal cancer. POSTOPERATIVE DIAGNOSIS: Diverticulitis. Personal history of colon polyps. Family history of gastrointestinal cancer. Colon polyp, ascending colon. External hemorrhoids. OPERATION: Colonoscopy to the ileocecal valve and appendiceal orifice. Colonoscopy with cold forceps biopsy ascending colon. SURGEON: Johanna Olea MD. ANESTHESIA: MAC. INDICATIONS: The patient is a 41-year-old female who presents following a diverticulitis attack. She reports previous history of colon polyps over 10+ years ago. Benefits and risks were described and informed consent was obtained. DESCRIPTION OF PROCEDURE: The patient had undergone Gatorade, MiraLAX and Dulcolax prep. She had been brought into the operating room and laid in the left lateral decubitus position. After adequate intravenous sedation, the rectum was examined with 2% lidocaine jelly. External hemorrhoids were encountered. The rectal tone was within normal limits. No lesions were palpated in the rectal vault. An Olympus colonoscope was advanced until the ileocecal valve and appendiceal orifice were clearly viewed. The prep was excellent with clear visualization of the mucosal folds. The scope was removed with visualization of each mucosal fold. Scattered diverticulosis with recent diverticulitis was encountered. At the ascending colon, 3 mm hyperplastic polyp was cold forceps biopsy. Focal colitis was found of the sigmoid colon. Grade 2 internal hemorrhoids was identified without active bleeding or inflammation. The colon was desufflated. The patient had tolerated the procedure well. Withdrawal time was over 6 minutes. FINDINGS: Internal hemorrhoids, grade 2 External prolapsed hemorrhoids. No arteriovenous malformations. At the ascending colon, 3 mm hyperplastic polyp was cold forceps biopsy. Focal colitis was found of the sigmoid colon. RECOMMENDATIONS: Lower endoscopy in 3 (2019) to 5 years per screening guidelines for high-risk familial and personal history. Plan - Discharge Summary New Discharge Prescriptions: No Action Levothyroxine Sodium [Synthroid] 112 mcg PO DAILY ALPRAZolam [Xanax] 0.5 mg PO DAILY PRN PRN Reason: Anxiety metFORMIN HCL [Metformin HCl] 500 mg PO BID Rx For Herpes (Unknown Name) 1 tab PO DAILY Discharge Medication List ALPRAZolam [Xanax] 0.5 mg PO DAILY PRN 01/20/17 [History] Levothyroxine Sodium [Synthroid] 112 mcg PO DAILY 01/20/17 [History] metFORMIN HCL [Metformin HCl] 500 mg PO BID 01/20/17 [History] Rx For Herpes (Unknown Name) 1 tab PO DAILY 02/25/17 [History] Follow up Appointment(s)/Referral(s): Johanna Olea MD [STAFF PHYSICIAN] - 03/11/17 Patient Instructions/Handouts: Hiatal Hernia (DC), Diverticulitis (DC) Discharge Disposition: HOME SELF-CARE
[2017-02-26 12:08] VITALS: BP 140/82; PULSE 58
[2017-02-26] MEDS ORDERED: IV FLUID CONTINUATION 1,000 ML IV ONE (12:19)
== END 2017-02-26 12:25 | disposition home or self-care (01) ==
LOC: ORWHC2ENDO 10:37
PROVIDERS: ATTEND Surgery Plastic and Reconstructive Surgery
DX: K29.50 Unspecified chronic gastritis without bleeding (principal); K57.32 Diverticulitis of large intestine without perforation or abscess without bleeding; K63.5 Polyp of colon; K21.0 Gastro-esophageal reflux disease with esophagitis; K44.9 Diaphragmatic hernia without obstruction or gangrene; K64.1 Second degree hemorrhoids; K64.8 Other hemorrhoids; K52.9 Noninfective gastroenteritis and colitis, unspecified; R19.4 Change in bowel habit; Z86.010 Personal history of colon polyps; Z80.0 Family history of malignant neoplasm of digestive organs; M19.90 Unspecified osteoarthritis, unspecified site; E07.9 Disorder of thyroid, unspecified; E11.9 Type 2 diabetes mellitus without complications; Z79.84 Long term (current) use of oral hypoglycemic drugs; Z79.899 Other long term (current) drug therapy; Z87.891 Personal history of nicotine dependence
CPT/HCPCS: 81025; 88305; 88342; 45380; 43239; J2001; J2704

== ENCOUNTER 2018-10-03 18:18 | Observation (INO) | payer OTHER ==
[2018-10-03] MEDS ORDERED: ASPIRIN 81 MG PO STA (18:57)
--- NOTE | 2018-10-03 19:23 | ED ---
General Adult HPI - General Chief complaint: Recheck/Abnormal Lab/Rx Stated complaint: abnormal poss levels-sent by Time Seen by Provider: 10/03/18 18:36 Source: patient Mode of arrival: wheelchair Limitations: no limitations - History of Present Illness Initial comments: 43-year-old female presenting with chief complaint of elevated potassium. Patient states the last month she's been feeling rundown had low energy since she presented to her primary care doctor for basic blood work. She was told that her potassium was 6.3 that she come to the ER. She denies any history of hyperkalemia or kidney dysfunction. Review of systems patient states that she' s been having left-sided chest pressure with exertion or with stress. She states it will resolve spontaneously. She's never had a heart attack before, does not have hypertension, high cholesterol, nor does she smoke. She denies ever having a stress test. She denies any shortness of breath or history of DVT /PE, recent surgery, active cancer. Denies any cough. - Related Data Home Medications Medication Instructions Recorded Confirmed ALPRAZolam [Xanax] 0.5 mg PO DAILY PRN 01/20/17 02/26/17 Levothyroxine Sodium [Synthroid] 112 mcg PO DAILY 01/20/17 02/26/17 metFORMIN HCL [Metformin HCl] 500 mg PO BID 01/20/17 02/26/17 Rx For Herpes (Unknown Name) 1 tab PO DAILY 02/25/17 Previous Rx's Medication Instructions Recorded Nystatin 100,000 Unit/gm Powd 1 applic TOPICAL BID #60 powder 03/11/17 [Mycostatin Powder] Omeprazole 40 mg PO DAILY #30 capsule. 03/11/17 Allergies Allergy/AdvReac Type Severity Reaction Status Date / Time No Known Allergies Allergy Verified 02/26/17 10:55 Review of Systems ROS Statement: Those systems with pertinent positive or pertinent negative responses have been documented in the HPI. Review of Systems Constitutional: Denies fever, chills Eyes: Denies change in vision, Denies pain Ears, nose, mouth, throat: Denies headaches, Denies sore throat Cardiovascular: Positive chest pain. Denies palpitations Respiratory: Denies shortness of breath, Denies cough Gastrointestinal: Denies abdominal pain. Denies nausea, vomiting, diarrhea. Genitourinary: Denies hematuria, Denies infections Musculoskeletal: Denies pain, Denies swelling Integumentary: Denies rash Neurological: Denies headache, focal weakness, focal numbness Psychiatric: Denies anxiety, Denies depression Hematologic/Lymphatic: Denies easy bleeding or bruising ROS Other: All systems not noted in ROS Statement are negative. Past Medical History Past Medical History: GERD/Reflux, Osteoarthritis (OA), Thyroid Disorder Additional Past Medical History / Comment(s): DIVERTICULITS (HOSPITALIZED 01/20-., STATES NO DIABETES-TAKING METFORMIN FOR WEIGHT LOSS). , STATES HERPES- NO CURRENT OUTBREAK. History of Any Multi-Drug Resistant Organisms: None Reported Past Surgical History: Orthopedic Surgery, Tonsillectomy Additional Past Surgical History / Comment(s): right knee (HEMATOMA), COLONOSCOPY WITH POLYPS. Past Anesthesia/Blood Transfusion Reactions: No Reported Reaction Past Psychological History: No Psychological Hx Reported Smoking Status: Former smoker Past Alcohol Use History: Occasional Past Drug Use History: Marijuana - Past Family History Father Family Medical History: Cancer Additional Family Medical History / Comment(s): Pancreatic Cancer Mother Family Medical History: Cancer Additional Family Medical History / Comment(s): Stomach Cancer Sister(s) Family Medical History: Cancer Additional Family Medical History / Comment(s): 1 SISTER= KIDNEY CANCER. 1 SISTER= TONGUE CANCER General Exam - General Exam Comments Initial Comments: General: Awake, alert, No acute Distress HENT: Normocephalic. Atraumatic Eyes: PERRL. EOMI. No scleral icterus. No injected conjunctiva Neck: Full ROM Chest/Lungs: Clear to auscultation bilaterally. No wheezing, rhonchi, or rales Cardiac: Regular rate, rhythm. No murmurs or rubs Abdomen/GI: Soft, nontender, nondistended. No rebound, guarding, or rigidity. Musculoskeletal: Full ROM Skin: Warm, dry, intact Neurologic: A/Ox3, no weakness, no sensory deficit, no abnormal gait, no coordination deficit Limitations: no limitations Course Vital Signs 10/03/18 10/03/18 10/03/18 18:27 18:30 19:14 Temperature 98.3 F 99.3 F Pulse Rate 90 86 Pulse Rate [ 80 Horseradish Maker ] Respiratory 18 17 Rate Blood Pressure 132/78 127/68 O2 Sat by Pulse 98 97 Oximetry 10/03/18 20:27 Temperature Pulse Rate 86 Pulse Rate [ Horseradish Maker ] Respiratory 17 Rate Blood Pressure 114/51 O2 Sat by Pulse 96 Oximetry Medical Decision Making - Medical Decision Making 43-year-old female presenting with chief complaint of hyperkalemia initial exam the patient is awake alert and is in no acute distress her vital signs are stable review of systems patient stated that she's been having chest pain with exertion or stress and that has been increasing in severity and frequency. She today at the pain while at rest. Her EKG shows normal sinus rhythm at a rate of [address] segment elevation, depression. No prolonged QT/QTc or [place] interval. No dysrythmia noted. This time the patient requires admission for stress test is I'm concerned that her chest pain is anginal in nature. She has not had a stress test before. I spoke with Dr. Montaño is agreeable to admission. - Lab Data Result diagrams: 10/03/18 19:12 10/03/18 19:12 Lab Results 10/03/18 10/03/18 10/03/18 Range/Units 19:12 19:12 19:12 WBC 12.6 H (3.8-10.6) k/uL RBC 4.69 (3.80-5.40) m/uL Hgb 14.4 (11.4-16.0) gm/dL Hct 44.3 (34.0-46.0) % MCV 94.4 (80.0-100.0) fL MCH 30.8 (25.0-35.0) pg MCHC 32.6 (31.0-37.0) g/dL RDW 13.2 (11.5-15.5) % Plt Count 307 (150-450) k/uL Neutrophils % 70 % Lymphocytes % 19 % Monocytes % 6 % Eosinophils % 3 % Basophils % 1 % Neutrophils # 8.9 H (1.3-7.7) k/uL Lymphocytes # 2.3 (1.0-4.8) k/uL Monocytes # 0.7 (0-1.0) k/uL Eosinophils # 0.4 (0-0.7) k/uL Basophils # 0.1 (0-0.2) k/uL Sodium 140 (137-145) mmol/L Potassium 4.5 (3.5-5.1) mmol/L Chloride 108 H (98-107) mmol/L Carbon Dioxide 24 (22-30) mmol/L Anion Gap 8 mmol/L BUN 15 (7-17) mg/dL Creatinine 0.60 (0.52-1.04) mg/dL Est GFR (CKD-EPI)AfAm >90 (>60 ml/min/1.73 sqM) Est GFR (CKD-EPI)NonAf >90 (>60 ml/min/1.73 sqM) Glucose 108 H (74-99) mg/dL Calcium 9.7 (8.4-10.2) mg/dL Troponin I <0.012 (0.000-0.034) ng/mL Disposition Clinical Impression: Chest pain at rest Disposition: ADMITTED IP TO THIS HOSP Referrals: Tiarra Espinoza DO [Primary Care Provider] - 1-2 days Decision Date: 10/03/18 Decision Time: 21:13
[2018-10-03 19:28] LABS: Basophils # (A) 0.1 k/uL (0-0.2); Basophils % (A) 1 %; Eosinophils # (A) 0.4 k/uL (0-0.7); Eosinophils % (A) 3 %; HCT 44.3 % (34.0-46.0); HGB 14.4 gm/dL (11.4-16.0); Lymphocytes # (A) 2.3 k/uL (1.0-4.8); Lymphocytes % (A) 19 %; MCH 30.8 pg (25.0-35.0); MCHC 32.6 g/dL (31.0-37.0); MCV 94.4 fL (80.0-100.0); Monocytes # (A) 0.7 k/uL (0-1.0); Monocytes % (A) 6 %; Neutrophils # (A) 8.9 k/uL (1.3-7.7); Neutrophils % (A) 70 %; Platelet Count 307 k/uL (150-450); RBC 4.69 m/uL (3.80-5.40); RDW 13.2 % (11.5-15.5); WBC 12.6 k/uL (3.8-10.6)
[2018-10-03 19:36] LABS: Anion Gap 8 mmol/L; Blood Urea Nitrogen 15 mg/dL (7-17); Calcium 9.7 mg/dL (8.4-10.2); Carbon Dioxide 24 mmol/L (22-30); Chloride 108 mmol/L (98-107); Glucose 108 mg/dL (74-99); Potassium 4.5 mmol/L (3.5-5.1); Sodium 140 mmol/L (137-145)
--- NOTE | 2018-10-03 20:26 | XR ---
EXAMINATION TYPE: XR chest 2V DATE OF EXAM: 10/03/2018 COMPARISON: NONE HISTORY: Pain TECHNIQUE: Frontal and lateral views of the chest are obtained. FINDINGS: There is no focal air space opacity, pleural effusion, or pneumothorax seen. The cardiac silhouette size is within normal limits. The osseous structures are intact. IMPRESSION: No acute cardiopulmonary process.
[2018-10-03] MEDS ORDERED: NALOXONE 0.4 MG/ML 1 ML VIAL IV PRN (21:14)
[2018-10-03] MEDS ORDERED: HYDROcodone/APAP 5-325MG 1 EACH TAB PO PRN (21:14)
[2018-10-03] MEDS ORDERED: IBUPROFEN 400 MG TAB PO PRN (21:14)
[2018-10-03] MEDS ORDERED: KETOROLAC 30 MG/ML 1 ML VIAL IVP PRN (21:14)
[2018-10-03 22:42] VITALS: BMI 38.7
[2018-10-04] MEDS ORDERED: LEVOTHYROXINE 112 MCG TAB PO SCH (06:30)
--- NOTE | 2018-10-04 08:04 | P.CRDCN ---
History of Present Illness Consult date: 10/04/18 Requesting physician: Ginger Jackson Consult reason: chest pain Chief complaint: Chest pain History of present illness: This is a pleasant 43-year-old female with no prior documented cardiac history, she does have history of hypothyroidism and GERD and issues with some stomach ulcers according to her. She is a nonsmoker. No hypertension , no diabetes, no hyperlipidemia, she does state that her sister had an myocardial infarction at the age of 45. Patient had some routine blood work performed at her physician's office in [place] because over the past week she states that she's been incredibly tired. She received a phone call at home that her potassium was elevated at 6.7 and she was instructed to come to the emergency room. This made her quite anxious, and she developed some tightness in the left upper chest region. She does state that when she gets stressed about issues she develops chest tightness. Her EKG on presentation here did not reveal any acute changes, blood pressure 120/76 with a heart rate in the 70s , 95% on room air. White blood cell count 12.6, hemoglobin 14.4, platelet count 307. Sodium 140, potassium 4.5, BUN 15 and creatinine 0.6. Troponins have been negative 3. At the time of my examination this morning, patient feels well, denies any chest pain or difficulty in breathing. Past Medical History Past Medical History: GERD/Reflux, Osteoarthritis (OA), Thyroid Disorder Additional Past Medical History / Comment(s): DIVERTICULITS (HOSPITALIZED 01/20-., , STATES HERPES-NO CURRENT OUTBREAK. WAS TAKING METFORMIN FOR WEIGHT LOSS BUT HAS NOT TAKEN THIS FOR 2 MONTHS History of Any Multi-Drug Resistant Organisms: None Reported Past Surgical History: Orthopedic Surgery, Tonsillectomy Additional Past Surgical History / Comment(s): right knee (HEMATOMA), COLONOSCOPY WITH POLYPS. Past Anesthesia/Blood Transfusion Reactions: No Reported Reaction Past Psychological History: No Psychological Hx Reported Additional Psychological History / Comment(s): . Smoking Status: Former smoker Past Alcohol Use History: Occasional Additional Past Alcohol Use History / Comment(s): QUIT SMOKING 12 YEARS AGO(2004 ). SMOKED 1 PPD., SMOKED APPROX 20 YEARS. Past Drug Use History: Marijuana Additional Drug Use History / Comment(s): CURRENT MARIJUANA USE DAILY - Past Family History Father Family Medical History: Cancer Additional Family Medical History / Comment(s): Pancreatic Cancer Mother Family Medical History: Cancer Additional Family Medical History / Comment(s): Stomach Cancer Sister(s) Family Medical History: Cancer Additional Family Medical History / Comment(s): 1 SISTER= KIDNEY CANCER. 1 SISTER= TONGUE CANCER Medications and Allergies Home Medications Medication Instructions Recorded Confirmed Type Levothyroxine Sodium [Synthroid] 125 mcg PO DAILY 10/03/18 10/03/18 History Omeprazole 20 mg PO DAILY 10/03/18 10/03/18 History valACYclovir [Valtrex] 500 mg PO DAILY 10/03/18 10/03/18 History Allergies Allergy/AdvReac Type Severity Reaction Status Date / Time No Known Allergies Allergy Verified 10/03/18 21:45 Physical Exam Vitals: Vital Signs Temp Pulse Pulse Pulse Resp BP BP 10/04/18 03:26 98.3 F 79 79 16 128/77 10/04/18 00:26 75 17 10/03/18 23:59 98.8 F 75 16 121/74 10/03/18 21:54 98.9 F 85 17 116/67 10/03/18 21:45 98.8 F 75 16 121/74 10/03/18 20:27 86 17 114/51 10/03/18 19:14 99.3 F 86 17 127/68 10/03/18 18:30 80 10/03/18 18:27 98.3 F 90 18 132/78 Pulse Ox 10/04/18 03:26 95 10/04/18 00:26 10/03/18 23:59 96 10/03/18 21:54 98 10/03/18 21:45 96 10/03/18 20:27 96 10/03/18 19:14 97 10/03/18 18:30 10/03/18 18:27 98 Intake and Output 10/03/18 10/04/18 10/04/18 22:59 06:59 14:59 Other: Voiding Method Toilet # Voids 1 Weight 108.862 kg 109.4 kg PHYSICAL EXAMINATION: GENERAL: 43-year-old female in no acute distress at the time of my examination HEENT: Head is atraumatic, normocephalic. Pupils equal, round. Sclera anicteric. Conjunctiva are clear. Mucous membranes of the mouth are moist. Neck is supple. There is no elevated jugular venous pressure. No carotid bruit is heard. HEART EXAMINATION: Heart S1, S2 normal. No murmur or gallop heard. CHEST EXAMINATION: Lungs are clear to auscultation and precussion. No chest wall tenderness is noted on palpation or with deep breathing. ABDOMEN: Soft, nontender. Bowel sounds are heard. No organomegaly noted. EXTREMITIES: 2+ peripheral pulses with no evidence of peripheral edema and no calf tenderness noted. NEUROLOGIC patient is awake, alert and oriented 3 . . Results 10/03/18 19:12 10/03/18 19:12 Cardiac Enzymes 10/03/18 10/04/18 10/04/18 Range/Units 19:12 01:06 06:49 Troponin I <0.012 <0.012 <0.012 (0.000-0.034) ng/mL CBC 10/03/18 Range/Units 19:12 WBC 12.6 H (3.8-10.6) k/uL RBC 4.69 (3.80-5.40) m/uL Hgb 14.4 (11.4-16.0) gm/dL Hct 44.3 (34.0-46.0) % Plt Count 307 (150-450) k/uL Comprehensive Metabolic Panel 10/03/18 Range/Units 19:12 Sodium 140 (137-145) mmol/L Potassium 4.5 (3.5-5.1) mmol/L Chloride 108 H (98-107) mmol/L Carbon Dioxide 24 (22-30) mmol/L BUN 15 (7-17) mg/dL Creatinine 0.60 (0.52-1.04) mg/dL Glucose 108 H (74-99) mg/dL Calcium 9.7 (8.4-10.2) mg/dL Current Medications Generic Name Dose Route Start Last Admin Trade Name Freq PRN Reason Stop Dose Admin Hydrocodone Bitart/Acetaminophen 1 each 10/03/18 21:14 [place] 5-325 PO Q4HR PRN Moderate Pain Ibuprofen 400 mg 10/03/18 21:14 Motrin PO Q6HR PRN Mild Pain or Fever > 100.5 Ketorolac Tromethamine 15 mg 10/03/18 21:14 Toradol IVP 10/08/18 21:15 Q6HR PRN Moderate Pain Levothyroxine Sodium 112 mcg 10/04/18 06:30 10/04/18 06:21 Synthroid PO 112 mcg DAILY@0630 DALI Administration Naloxone HCl 0.2 mg 10/03/18 21:14 Narcan IV Q2M PRN Opioid Reversal Intake and Output 10/03/18 10/04/18 10/04/18 22:59 06:59 14:59 Other: Voiding Method Toilet # Voids 1 Weight 108.862 kg 109.4 kg 10/03/18 19:12 10/03/18 19:12 EKG Interpretations (text) EKG shows normal sinus rhythm with no acute changes. Assessment and Plan Plan: Assessment and plan #1 symptoms of chest tightness, atypical for acute coronary syndrome. Troponins negative 3. EKG shows normal sinus rhythm with no acute changes. #2 hypothyroidism #3 GERD #4 family history of premature coronary artery disease in her sister who had a myocardial infarction at the age of 45. #5 suspected elevated potassium as an outpatient, potassium here is normal. Plan From cardiology's perspective, we would recommend patient could be discharged home. We will schedule an echocardiogram with Doppler study and stress echocardiographic study this week as an outpatient. Follow-up appointment in the office post discharge. DNP note has been reviewed, I agree with a documented findings and plan of care. Patient was seen and examined.
[2018-10-04 08:51] VITALS: RESP 18
[2018-10-04 11:32] VITALS: BP 132/80; PULSE 83; TEMP 98.3
--- NOTE | 2018-10-04 14:15 | P.HPIM ---
History of Present Illness H&P Date: 10/04/18 Chief Complaint: chest pain 43-year-old female with no prior documented cardiac history, she does have history of hypothyroidism and GERD and issues with some stomach ulcers according to her. She is a nonsmoker. No hypertension, no diabetes, no hyperlipidemia, she does state that her sister had an myocardial infarction at the age of 45. Patient had some routine blood work performed at her physician' s office in [place] because over the past week she states that she's been incredibly tired. She received a phone call at home that her potassium was elevated at 6.7 and she was instructed to come to the emergency room. This made her quite anxious, and she developed some tightness in the left upper chest region. She does state that when she gets stressed about issues she develops chest tightness. Her EKG on presentation here did not reveal any acute changes, blood pressure 120/76 with a heart rate in the 70s, 95% on room air. White blood cell count 12.6, hemoglobin 14.4, platelet count 307. Sodium 140, potassium 4.5, BUN 15 and creatinine 0.6. Troponins have been negative 3. At the time of my examination this morning, patient feels well, denies any chest pain or difficulty in breathing. Review of Systems Constitutional: Denies chills, Denies fever Eyes: denies as per HPI Cardiovascular: Reports chest pain, Denies irregular heart beat, Denies palpitations, Denies syncope Respiratory: Denies cough with sputum Gastrointestinal: Denies nausea, Denies vomiting Neurological: Denies balance difficulties, Denies change in speech, Denies confusion Past Medical History Past Medical History: GERD/Reflux, Osteoarthritis (OA), Thyroid Disorder Additional Past Medical History / Comment(s): DIVERTICULITS (HOSPITALIZED 01/20-., , STATES HERPES-NO CURRENT OUTBREAK. WAS TAKING METFORMIN FOR WEIGHT LOSS BUT HAS NOT TAKEN THIS FOR 2 MONTHS History of Any Multi-Drug Resistant Organisms: None Reported Past Surgical History: Orthopedic Surgery, Tonsillectomy Additional Past Surgical History / Comment(s): right knee (HEMATOMA), COLONOSCOPY WITH POLYPS. Past Anesthesia/Blood Transfusion Reactions: No Reported Reaction Past Psychological History: No Psychological Hx Reported Additional Psychological History / Comment(s): . Smoking Status: Former smoker Past Alcohol Use History: Occasional Additional Past Alcohol Use History / Comment(s): QUIT SMOKING 12 YEARS AGO(2004 ). SMOKED 1 PPD., SMOKED APPROX 20 YEARS. Past Drug Use History: Marijuana Additional Drug Use History / Comment(s): CURRENT MARIJUANA USE DAILY - Past Family History Father Family Medical History: Cancer Additional Family Medical History / Comment(s): Pancreatic Cancer Mother Family Medical History: Cancer Additional Family Medical History / Comment(s): Stomach Cancer Sister(s) Family Medical History: Cancer Additional Family Medical History / Comment(s): 1 SISTER= KIDNEY CANCER. 1 SISTER= TONGUE CANCER Medications and Allergies Home Medications Medication Instructions Recorded Confirmed Type Levothyroxine Sodium [Synthroid] 125 mcg PO DAILY 10/03/18 10/03/18 History Omeprazole 20 mg PO DAILY 10/03/18 10/03/18 History valACYclovir [Valtrex] 500 mg PO DAILY 10/03/18 10/03/18 History Allergies Allergy/AdvReac Type Severity Reaction Status Date / Time No Known Allergies Allergy Verified 10/03/18 21:45 Physical Exam Vitals: Vital Signs Temp Pulse Pulse Pulse Resp BP BP 10/04/18 08:00 98.2 F 78 18 144/91 10/04/18 03:26 98.3 F 79 79 16 128/77 10/04/18 00:26 75 17 10/03/18 23:59 98.8 F 75 16 121/74 10/03/18 21:54 98.9 F 85 17 116/67 10/03/18 21:45 98.8 F 75 16 121/74 10/03/18 20:27 86 17 114/51 10/03/18 19:14 99.3 F 86 17 127/68 10/03/18 18:30 80 10/03/18 18:27 98.3 F 90 18 132/78 Pulse Ox 10/04/18 08:00 97 10/04/18 03:26 95 10/04/18 00:26 10/03/18 23:59 96 10/03/18 21:54 98 10/03/18 21:45 96 10/03/18 20:27 96 10/03/18 19:14 97 10/03/18 18:30 10/03/18 18:27 98 Intake and Output 10/03/18 10/04/18 10/04/18 22:59 06:59 14:59 Other: Voiding Method Toilet Toilet # Voids 1 Weight 108.862 kg 109.4 kg GENERAL: 43-year-old female in no acute distress at the time of my examination HEENT: Head is atraumatic, normocephalic. Pupils equal, round. Sclera anicteric. Conjunctiva are clear. Mucous membranes of the mouth are moist. Neck is supple. There is no elevated jugular venous pressure. No carotid bruit is heard. HEART EXAMINATION: Heart S1, S2 normal. No murmur or gallop heard. CHEST EXAMINATION: Lungs are clear to auscultation and precussion. No chest wall tenderness is noted on palpation or with deep breathing. ABDOMEN: Soft, nontender. Bowel sounds are heard. No organomegaly noted. EXTREMITIES: 2+ peripheral pulses with no evidence of peripheral edema and no calf tenderness noted. NEUROLOGIC patient is awake, alert and oriented 3 . Results CBC & Chem 7: 10/03/18 19:12 10/03/18 19:12 Labs: Abnormal Lab Results - Last 24 Hours (Table) 10/03/18 10/03/18 Range/Units 19:12 19:12 WBC 12.6 H (3.8-10.6) k/uL Neutrophils # 8.9 H (1.3-7.7) k/uL Chloride 108 H (98-107) mmol/L Glucose 108 H (74-99) mg/dL Thrombosis Risk Factor Assmnt - Choose All That Apply Each Factor Represents 1 point: Age 41-60 years Thrombosis Risk Factor Assessment Total Risk Factor Score: 1 Thrombosis Risk Factor Assessment Level: Low Risk Assessment and Plan Assessment: 1. Chest pain rule out acute coronary syndrome - admitted to telemetry and monitor EKG and trend troponin - Consult cardiology for further recommendations 2. Leukocytosis; possibly stress-induced; No evidence of infection 3. Hypothyroidism; Resume dose of levothyroxine 4. Gastroesophageal reflux disease; Stable 5. DVT prophylaxis; SCDs CODE STATUS; full code
--- NOTE | 2018-10-04 14:16 | P.DS ---
Providers Date of admission: 10/03/18 21:15 Expected date of discharge: 10/04/18 Attending physician: Mitchell Jackson MD Consults: 10/03/18 21:17 Consult Physician Routine Consulting Provider: [facility] Consult Reason/Comments: chest pain Do you want consulting provider notified?: Yes Primary care physician: Tiarra Espinoza Hospital Course: 43-year-old female with no prior documented cardiac history, she does have history of hypothyroidism and GERD and issues with some stomach ulcers according to her. She is a nonsmoker. No hypertension, no diabetes, no hyperlipidemia, she does state that her sister had an myocardial infarction at the age of 45. Patient had some routine blood work performed at her physician' s office in [place] because over the past week she states that she's been incredibly tired. She received a phone call at home that her potassium was elevated at 6.7 and she was instructed to come to the emergency room. This made her quite anxious, and she developed some tightness in the left upper chest region. She does state that when she gets stressed about issues she develops chest tightness. Her EKG on presentation here did not reveal any acute changes, blood pressure 120/76 with a heart rate in the 70s, 95% on room air. White blood cell count 12.6, hemoglobin 14.4, platelet count 307. Sodium 140, potassium 4.5, BUN 15 and creatinine 0.6. Troponins have been negative 3. At the time of my examination this morning, patient feels well, denies any chest pain or difficulty in breathing. Patient was seen by cardiology service and was recommended to have echocardiogram and stress test as an outpatient no change in medications as recommended Patient was discharged home in a stable condition to follow-up with primary thermostat repairer as an outpatient Plan - Discharge Summary Discharge Rx Participant: No New Discharge Prescriptions: Continue valACYclovir [Valtrex] 500 mg PO DAILY Omeprazole 20 mg PO DAILY Levothyroxine Sodium [Synthroid] 125 mcg PO DAILY Discharge Medication List Levothyroxine Sodium [Synthroid] 125 mcg PO DAILY 10/03/18 [History] Omeprazole 20 mg PO DAILY 10/03/18 [History] valACYclovir [Valtrex] 500 mg PO DAILY 10/03/18 [History] Follow up Appointment(s)/Referral(s): Plumer,Tiarra, DO [Primary Care Provider] - 1-2 days Yolanda Pickens MD [STAFF PHYSICIAN] - 2 Weeks Discharge Disposition: HOME SELF-CARE
== END 2018-10-04 16:00 | disposition home or self-care (01) ==
LOC: EC 18:18 → 3SCARD 21:15 → 1SOBS 10-04 08:25
PROVIDERS: ADMIT Internal Medicine; ATTEND Internal Medicine
DX: R07.89 Other chest pain (principal); K21.9 Gastro-esophageal reflux disease without esophagitis; E03.9 Hypothyroidism, unspecified; M19.90 Unspecified osteoarthritis, unspecified site; B00.9 Herpesviral infection, unspecified; K57.90 Diverticulosis of intestine, part unspecified, without perforation or abscess without bleeding; D72.829 Elevated white blood cell count, unspecified; Z79.890 Hormone replacement therapy; Z79.84 Long term (current) use of oral hypoglycemic drugs; Z79.899 Other long term (current) drug therapy; Z86.010 Personal history of colon polyps; Z87.891 Personal history of nicotine dependence; Z87.11 Personal history of peptic ulcer disease; Z80.0 Family history of malignant neoplasm of digestive organs; Z80.51 Family history of malignant neoplasm of kidney; Z80.8 Family history of malignant neoplasm of other organs or systems; Z82.49 Family history of ischemic heart disease and other diseases of the circulatory system
CPT/HCPCS: 99285; 36415; 93005; 80048; 84484 ×2; 85025; 71046; G0378 ×2

== ENCOUNTER → 2021-12-21 | Outpatient (CLI) | payer BC ==
[2021-12-21 16:38] LABS: ALT 72 U/L (8-44); AST 45 U/L (13-35); Albumin 4.4 g/dL (3.8-4.9); Albumin/Globulin Ratio 1.63 (1.60-3.17); Alkaline Phosphatase 85 U/L (41-126); BUN/Creat Ratio 19.88 Ratio (12.00-20.00); Blood Urea Nitrogen 15.9 mg/dL (9.0-27.0); Calcium 9.6 mg/dL (8.7-10.3); Chloride 101 mmol/L (96-109); Globulin 2.7 g/dL (1.6-3.3); Glucose 163 mg/dL (70-110); Non-African American GFR(CKD) 87.2 (60.0-200.0); Potassium 4.7 mmol/L (3.5-5.5); Sodium 140 mmol/L (135-145); Total Protein 7.1 g/dL (6.2-8.2)
== END | disposition home or self-care (01) ==
LOC: LABWHC1 08:36
PROVIDERS: ATTEND Family Medicine
DX: E03.9 Hypothyroidism, unspecified (principal); E11.9 Type 2 diabetes mellitus without complications; E78.5 Hyperlipidemia, unspecified
CPT/HCPCS: 36415; 80053; 83036; 83721; 84443

== ENCOUNTER → 2022-09-03 | Outpatient (CLI) | payer BC, OTHER ==
--- NOTE | 2022-09-03 17:42 | US ---
EXAMINATION TYPE: US kidneys/renal and bladder DATE OF EXAM: 09/03/2022 COMPARISON: CT abdomen pelvis 01/20/2017. CLINICAL HISTORY: R10.9 ABDOMINAL PAIN. Right flank pain. Family history of renal cancer EXAM MEASUREMENTS: Right Kidney: 12.5 x 4.1 x 3.6 cm Left Kidney: 13.1 x 5.0 x 6.1 cm Right Kidney: possible dilated renal pelvis Left Kidney: no evidence of hydronephrosis Bladder: wnl Bilateral Jets seen: yes There is no evidence for hydronephrosis at this point in time. Prominent right extrarenal pelvis. No nephrolithiasis is seen. No masses are identified. The urinary bladder is anechoic and under disten ded. Bilateral ureteral jets are seen. The visualized portions of the liver hyperechoic. IMPRESSION: 1. Prominent right extrarenal pelvis without evidence for hydronephrosis of either kidney. 2. No nephrolithiasis. 3. Hepatic steatosis.
== END | disposition home or self-care (01) ==
LOC: RADUSWWP 16:07
PROVIDERS: ATTEND Family Medicine
DX: K76.0 Fatty (change of) liver, not elsewhere classified (principal); Z80.51 Family history of malignant neoplasm of kidney
CPT/HCPCS: 76770

== ENCOUNTER → 2022-09-04 | Outpatient (CLI) | payer BC, OTHER ==
[2022-09-04 19:24] LABS: Basophils # (A) 0.08 X 10*3/uL (0.00-0.10); Basophils % (A) 0.7 %; Eosinophils # (A) 0.33 X 10*3/uL (0.04-0.35); HCT 49.8 % (37.2-46.3); HGB 15.8 g/dL (12.0-15.0); Immature Grans, Automated 0.9 %; Lymphocytes # (A) 2.81 X 10*3/uL (0.90-5.00); Lymphocytes % (A) 25.4 %; MCH 29.2 pg (27.0-32.0); MCHC 31.7 g/dL (32.0-37.0); MCV 92.1 fL (80.0-97.0); Mean Platelet Volume 9.6 fL (9.5-12.2); Monocytes # (A) 0.76 X 10*3/uL (0.20-1.00); Monocytes % (A) 6.9 %; NRBC Per 100 WBC 0 /100 WBCS (0.0-0.0); Neutrophils # (A) 6.97 X 10*3/uL (1.80-7.70); Neutrophils % (A) 63.1 %; Platelet Count 352 X 10*3/uL (140-440); RBC 5.41 X 10*6/uL (4.10-5.20); RDW 13.2 % (11.5-14.5); WBC 11.05 X 10*3/uL (4.50-10.00)
[2022-09-04 19:54] LABS: African American GFR (CKD) 117.9 (60.0-200.0); Albumin 4.5 g/dL (3.8-4.9); Albumin/Globulin Ratio 1.96 (1.60-3.17); BUN/Creat Ratio 16.71 Ratio (12.00-20.00); Blood Urea Nitrogen 11.7 mg/dL (9.0-27.0); Calcium 9.8 mg/dL (8.7-10.3); Globulin 2.3 g/dL (1.6-3.3); Non-African American GFR(CKD) 101.7 (60.0-200.0); Potassium 4.8 mmol/L (3.5-5.5); Total Bilirubin 0.3 mg/dL (0.30-1.20); Total Protein 6.8 g/dL (6.2-8.2)
[2022-09-05 04:58] LABS: Herpes simplex I and/or II IgM 0.23 INDEX (<=0.90); Herpes simplex IgG I Ab 7.07 (< or = 0.90); Herpes simplex IgG II Ab 9.49 (< or = 0.90)
[2022-09-05 08:59] LABS: HIV-1 RNA Not detected (Not detected)
== END | disposition home or self-care (01) ==
LOC: LABWHC1 13:39
PROVIDERS: ATTEND Family Medicine
DX: I10 Essential (primary) hypertension (principal); E03.9 Hypothyroidism, unspecified; E11.9 Type 2 diabetes mellitus without complications
CPT/HCPCS: 36415; 80053; 83036; 84443; 85025; 86694; 86695; 86696; 87529; 87535

== ENCOUNTER → 2023-10-27 | Outpatient (CLI) | payer BC, OTHER | END | disposition home or self-care (01) | LOC: LABPAT 13:31 | PROVIDERS: ATTEND Orthopaedic Surgery | DX: Z01.812 Encounter for preprocedural laboratory examination (principal); M16.12 Unilateral primary osteoarthritis, left hip; Z22.322 Carrier or suspected carrier of Methicillin resistant Staphylococcus aureus | CPT/HCPCS: 86850; 86900; 86901; 87070 ==

== ENCOUNTER 2023-11-04 11:07 | Day surgery (SDC) | payer BC, OTHER ==
[2023-10-30 10:56] VITALS: BMI 35.2
--- NOTE | 2023-11-03 08:45 | P.HPOR ---
History of Present Illness H&P Date: 11/03/23 Chief Complaint: Left hip pain Mikki davis is a 48-year-old female presents with progressive left hip pain past 4 years worsening over the past 4 months. She notes groin and thigh pain with walking and getting up from a seated position. She is having night symptoms. She notes instability along with stiffness. She's been taking medications without much relief. She notes it limits her normal function and activities. Review of Systems As per HPI Past Medical History Past Medical History: Diabetes Mellitus, GERD/Reflux, Osteoarthritis (OA), Thyroid Disorder Additional Past Medical History / Comment(s): DIVERTICULOSIS, HX STOMACH ULCER, COLON POLYPS History of Any Multi-Drug Resistant Organisms: None Reported Past Surgical History: Orthopedic Surgery, Tonsillectomy Additional Past Surgical History / Comment(s): right knee (HEMATOMA), COLONOSCOPY WITH POLYPS., EGD Past Anesthesia/Blood Transfusion Reactions: No Reported Reaction Smoking Status: Former smoker - Past Family History Father Family Medical History: Cancer Additional Family Medical History / Comment(s): Pancreatic Cancer Mother Family Medical History: Cancer Additional Family Medical History / Comment(s): Stomach Cancer Sister(s) Family Medical History: Cancer Additional Family Medical History / Comment(s): 1 SISTER= KIDNEY CANCER. 1 SISTER= TONGUE CANCER Medications and Allergies Home Medications Medication Instructions Recorded Confirmed Type FLUoxetine HCL [PROzac] 20 mg PO DAILY@1200 10/01/22 10/30/23 History Levothyroxine Sodium [Synthroid] 150 mcg PO DAILY 10/01/22 10/30/23 History Meloxicam [Mobic] 15 mg PO DAILY 10/01/22 10/30/23 History metFORMIN HCL 500 mg PO DAILY@119910/01/22 10/30/23 History Omeprazole 40 mg PO DAILY@119910/30/23 10/30/23 History Ozempic (Unknown Dose) 1 dose SQ TH 10/30/23 History Rosuvastatin [Crestor] 20 mg PO DAILY@119910/30/23 10/30/23 History traMADol HCL 50 mg PO Q12HR PRN 10/30/23 10/30/23 History Allergies Allergy/AdvReac Type Severity Reaction Status Date / Time No Known Allergies Allergy Verified 10/30/23 10:13 Physical Examination - Hip left Gait: antalgic Tenderness with palpation: anterior Pain with motion: internal rotation and hip flexion ROM: flexion: 80 degrees ROM: internal rotation: 5 degrees (With pain) ROM: external rotation: 50 degrees Crepitus with motion: Yes Strength: extension: 5/5 Strength: flexion: 5/5 Strength: abduction: 5/5 Tests: impingement tests: positive Results The patient is a well-developed well-nourished female approximately 5 foot 6, 212 pounds of endomorphic habitus. HEENT exam is nonfocal, neck is supple. She has painful passive motion of left hip. Clinically she has shortening of the left lower extremity compared to the right. She has an antalgic gait pattern. Her distal neurovascular exam appears intact left lower extremity. - Diagnostic results Hip x-ray: image reviewed (2 views of left hip with pain in the office show severe osteoarthrosis with [id number] changes.) Assessment and Plan Assessment: Left hip severe osteoarthrosis Plan: I talked to the patient at length regarding her condition along with treatment options. At this point she is quite limited because of pain and mechanical symptoms related to her left hip osteoarthrosis despite previous conservative measures. After a thorough a discussion she opted to proceed with surgery. We'll plan to proceed with a left total hip arthroplasty utilizing the anterior approach. Risks and benefits are discussed at length in layman's terms. We will institute DVT prophylaxis postoperative.
[~2023-11-04 11:07] MED LIST changes: -LACTATED RINGERS 1,000 ML IV SCH; +LIDOCAINE 1% (10MG/ML) FOR IV START INTRADERMA PRN; -LIDOCAINE 1% 20 ML VIAL (10MG/ML) FOR IV START INTRADERMA PRN; +TRANEXAMIC 1,000 MG/100ML-NACL 1,000 MG in SALINE 1 100ML.BAG IVPB PRN
[2023-11-04 11:49] LABS: Glucose,Whole Blood 102 mg/dL (70-110)
[2023-11-04] MEDS: LACTATED RINGERS 1,000 ML IV SCH (11:49)
[2023-11-04] MEDS: MELOXICAM 7.5 MG TAB PO PRN (11:54)
[2023-11-04] MEDS: ACETAMINOPHEN TAB 500 MG TAB PO PRN (11:54)
[2023-11-04] MEDS: ONDANSETRON 4 MG/2 ML VIAL IVP ONE (11:54)
[2023-11-04] MEDS: MIDAZOLAM 2 MG/2 ML VIAL IVP ONE (12:00)
--- NOTE | 2023-11-04 12:13 | P.ANPRN ---
Procedure Note - Anesthesia - Nerve Block Performed Left Maciel Single Time Out Performed: Yes Date of Procedure: 11/04/23 Procedure Start Time: 12:00 Procedure Stop Time: 12:05 Location of Patient: PreOp Indication: Acute Post-Operative Pain, Analgesia, Requested by Surgeon Sedation Type: Sedate with meaningful contact maintained Preparation: Sterile Prep Position: Supine Catheter: None Needle Types: Pajunk Needle Gauge: 21 Ultrasound used to visualize needle placement: Yes Ultrasound used to observe medication spread: Yes Injectate: 0.5% Ropivacaine (see comment for volume) (. AttemptX1) Blood Aspirated: No Pain Paresthesia on Injection Noted: No Resistance on Injection: Normal Image Stored and Saved: Yes Events: Uneventful and Well Tolerated
[2023-11-04] MEDS ORDERED: PHENYLEPHRINE-0.9% NACL SYG 1,000 MCG/10 ML SYRINGE ONE (13:10)
[2023-11-04] MEDS ORDERED: PROPOFOL 10 MG/ML 20 ML VIAL IV ONE (13:10)
[2023-11-04] MEDS ORDERED: fentaNYL (PF) 50 MCG/ML 2 ML AMP ONE (13:10)
[2023-11-04] MEDS ORDERED: KETAMINE HCL IN 0.9 % NACL 50 MG/5 ML SYRINGE ONE (13:10)
[2023-11-04] MEDS ORDERED: MIDAZOLAM 2 MG/2 ML VIAL ONE (13:10)
[2023-11-04] MEDS ORDERED: TRANEXAMIC 1,000 MG/100ML-NACL PREMIX BAG ONE (13:10)
[2023-11-04] MEDS ORDERED: DEXAMETHASONE SOD PHOSPHATE 4 MG/ML 1 ML VIAL ONE (13:10)
[2023-11-04] MEDS ORDERED: ROPIVACAINE 5 MG/ML 30 ML VIAL ONE (13:10)
[2023-11-04] MEDS: LACTATED RINGERS 1,000 ML IV ONE (14:01)
[2023-11-04] MEDS ORDERED: HYDROmorphone 1 MG/ML 1 ML SYRINGE IVP PRN (15:10)
[2023-11-04] MEDS ORDERED: HYDROmorphone 0.5 MG/0.5 ML SYRINGE IVP PRN (15:10)
[2023-11-04] MEDS ORDERED: NALOXONE 0.4 MG/ML 1 ML VIAL IV PRN (15:10)
[2023-11-04] MEDS ORDERED: MAGNESIUM HYDROXIDE 2,400 MG/30 ML CUP PO PRN (15:10)
[2023-11-04] MEDS ORDERED: traMADol 50 MG TAB PO PRN (15:10)
[2023-11-04] MEDS ORDERED: HYDROcodone/APAP 7.5-325MG 1 EACH TAB PO PRN (15:10)
--- NOTE | 2023-11-04 15:35 | FL ---
EXAMINATION TYPE: FL guidance operating room, XR Hip Limited LT Intraoperative/procedural fluoroscopi c services were provided. Total fluoroscopy time is 49 seconds with a total of 4 submitted images to PACS. Please see the operative/procedural note for further details. DAP: 3.7913 Gycm2
--- NOTE | 2023-11-04 15:35 | P.OP ---
Date of Procedure: 11/04/23 Preoperative Diagnosis: Left hip severe osteoarthrosis Postoperative Diagnosis: Same Procedure(s) Performed: Left total hip arthroplastypress-fitanterior approach Implants: Depuy Corail size 11/135 collared press-fit femoral stem, 36+1.5 cobalt chrome femoral head, 54 mm [place] acetabular shell with neutral polyethylene liner. Anesthesia: regional, spinal Surgeon: Gianni Daily Chief Creative Officer #1: Kvng Gillis Estimated Blood Loss (ml): 200 Pathology: none sent Condition: stable Disposition: PACU Indications for Procedure: The patient is a 48-year-old female who presents with progressive left hip pain secondary osteoarthrosis despite attempted conservative measures. A discussion of the risks and benefits of operative intervention versus continued conservative measures was made with patient. She opted to proceed with surgery. Operative risks to include infection, neurovascular injury, development of blood clots, leg length discrepancy, fracture, possible component loosening/failure need for subsequent procedures was discussed. Informed consent was obtained. Operative Findings: As below Description of Procedure: The patient was brought to the operating room, and after induction of spinal anesthesia was placed supine on the Alondra table. Positioning was checked with fluoroscopy. The left hip was then prepped and draped in a normal fashion. A 12 cm incision was then made starting 2 fingerbreadths distal and 3 finger breaths posterior to the ASIS in line with the proximal femur. The skin was incised sharply. Subcutaneous tissues were divided sharply. Electrocautery was used for hemostasis. The fascia was split in line with skin incision. The interval between the sartorius and tensor fascia destiny was then bluntly developed. The posterior fascia was opened with electrocautery. The lateral circumflex vessels were identified and cauterized prior to sectioning. A retractor was placed along the superior femoral neck as well as the anterior acetabular rim. A wide capsulotomy was performed. The neck cut was then made at a 45 angle to the shaft approximately 1 1/2 cm above the level of the lesser trochanter. The head was extracted. Attention was then paid towards preparing the acetabular. Anterior and posterior retractors were placed. The remaining capsular labral tissue sharply debrided clearly defining the acetabular margins. I began reaming with a 49 mm reamer taking care to initially medialize then reaming at 45 of abduction and 20 of anteversion. Sequential reaming is performed up to 53 mm. A trial 54 mm acetabular shell was inserted in the same orientation and was fully seated. There was good rim fit and stability. Positioning was checked with fluoroscopy. The final 54 mm acetabular shell was inserted again at 45 of abduction and 20 of anteversion. This was fully seated. There was good rim fit and stability. Again fluoroscopy was used to check the adequacy of placement. A neutral polyethylene liner was gently impacted. Care was taken to avoid any soft tissue interposition. Pulsatile lavage was utilized. Attention was then paid towards preparing the proximal femur. The central region was cleared of soft tissue. A canal finder was used to find the femoral canal. Sequential broaching was performed up to size 11 taking care to lateralize proximally. A calcar mill was used to fashion the medial calcar. There was good rotational stability. A 135 standard neck along with a 36 mm +1.5 head was placed. The hip was gently reduced. Fluoroscopy was used to check the adequacy of positioning along with leg lengths. I felt both were good. The hip was gently dislocated. The trial components were removed. The final size 11 collared one 35 standard press-fit femoral stem was inserted parallel to the posterior cortex. This was fully seated and there was good rotational stability. A 36 mm +1.5 head was placed. This was gently impacted. The hip was then gently reduced. Final fluoroscopic view showed adequate placement implant along with cheondoism of leg length. Stability was checked with 80 of external rotation and 60 of extension of the right hip. The wound was irrigated with sterile lavage. The fascia was closed with running 0 Vicryl suture. There was minimal drainage therefore a deep drain was not placed. The second dose of IV TXA was given. The subcutaneous tissues were reapproximated interrupted 2-0 Vicryl sutures. The skin was reapproximated with 3-0 subcuticular strata fix suture. Skin tape and adhesive was applied. A sterile dressing was applied. The patient was then awoken from sedation and transferred to recovery room in good condition. Blood loss was estimated at 200 mL. No complications were incurred. Sponge and need le counts were correct at the end of the case. Kvng AVILES assisted during the major components is case to include exposure, bone resection, implantation, and closure.
[2023-11-04] MEDS: droPERidol 5 MG/2 ML VIAL IVP ONE (15:38)
--- NOTE | 2023-11-04 16:03 | XR ---
EXAMINATION TYPE: XR Hip Limited LT DATE OF EXAM: 11/04/2023 COMPARISON: NONE HISTORY: Postop TECHNIQUE: One view submitted. FINDINGS: There is postsurgical change compatible hip replacement surgery. IMPRESSION: 1. Postoperative change.
[2023-11-04] MEDS: HYDROmorphone 0.5 MG/0.5 ML SYRINGE IVP PRN (16:07)
[2023-11-04 16:17] LABS: Glucose,Whole Blood 110 mg/dL (70-110)
[2023-11-04] MEDS: HYDROcodone/APAP 5-325MG 1 EACH TAB PO PRN (19:55)
[2023-11-04] MEDS: SENNOSIDES-DOCUSATE SODIUM 1 EACH TAB PO SCH (20:06)
[2023-11-04] MEDS: FLUoxetine HCL 20 MG CAP PO SCH (23:54)
[2023-11-05] MEDS: INSULIN ASPART (NovoLOG) 100 UNIT/ML VIAL SQ SCH (06:04)
[2023-11-05] MEDS: LEVOTHYROXINE 75 MCG TAB PO SCH (06:05)
[2023-11-05 06:06] LABS: Glucose,Whole Blood 112 mg/dL (70-110)
[2023-11-05] MEDS: RIVAROXABAN 10 MG TAB PO SCH (08:14)
[2023-11-05 08:25] VITALS: BP 161/88; RESP 17; TEMP 98.1
--- NOTE | 2023-11-05 08:59 | P.DS ---
Providers Date of admission: 11/04/2023 Expected date of discharge: 11/05/23 Attending physician: Gianni Daily Consults: 11/04/23 15:10 Consult Physician Routine Consulting Provider: Jane Be Consult Reason/Comments: medical management s/p direct anterior left total hip arthroplasty Do you want consulting provider notified?: Yes Primary care physician: Tiarra Espinoza Hospital Course: Date of admission: 11/04/2023 Date of discharge: 11/05/2023 Admission diagnosis: Left hip osteoarthritis Discharge diagnosis: Same Attending physician: Dr. Daily Surgical procedures: Direct anterior left total hip arthroplasty Brief history: Patient is a 48-year-old female with a history of progressive primary left hip osteoarthritis. At this point patient has failed conservative treatment measures and has opted to proceed with a elective left total hip arthroplasty. Hospital course: Details of patient's surgery can be found in operative report. Patient tolerated the procedure well and was subsequently transported to orthopedic floor. Patient's orthopeidc and medical care was provided daily. Patient had daily laboratory tests performed for evaluation of overall blood counts. Patient had daily physical therapy to include strengthening range of motion as well as education with walker ambulation. Patient was treated with Xarelto for their postoperative DVT prophylaxis during their inpatient stay. Patient was noted to have a relatively uneventful postoperative course. Patient reported satisfactory pain control with oral pain medications by postoperative day 1. Patient showed satisfactory progress with physical therapy. Patient moved steadily through the program and had no difficulty meeting the goals by postoperative day 1. Given patient's otherwise satisfactory course and having met physical therapy goals, plan is to discharge patient home with health services on postoperative day 1. Discharge condition/disposition: Patient will be discharged home with health services in stable condition. Discharge medications: Instructions are given on resumption of patient's normal daily medications per primary care recommendation, in addition patient will be prescribed Gilbert; senna; Eliquis 2.5 mg twice a day 2 weeks. Discharge instructions: 1. Wound care and infection precautions, keep incision dry and covered while showering, no lotions, creams, moisturizers. No soaking, tubs, pools, hottubs. Do not scrub over the incision. 2. Weight-bear as tolerated with walker / cane until follow-up. 3. Ice and elevate when necessary. Do not exceed 20 minutes per hour with ice pack. 4. Utilize compression sleeve until seen at first follow up appointment. 5. Visiting nursing care. 6. Home physical therapy including home CPM. 7. Pain meds and anticoagulants per prescription. 8. Pain medication has potential to cause constipation. Increase oral fluid and fiber intake. Contact primary care provider if you have not had a bowel movement within 48 hours after discharge 9. No anti-inflammatory medication until discussed at first post operative visit, this including Motrin, Aleve, Mobic, Diclofenac. 10. Follow up in office at 2 weeks postop with Juanpablo Alvarado PA-C / Kvng Gillis PA-C 11. Follow up with your primary care doctor 7-10 days after discharge. 12. Contact [facility] with any questions, . Assessment: Left hip osteoarthritis Procedures: Direct anterior left total hip arthroplasty Patient Condition at Discharge: Good Plan - Discharge Summary Discharge Rx Participant: No New Discharge Prescriptions: New Apixaban [Eliquis] 2.5 mg PO BID #60 tab HYDROcodone/APAP 5-325MG [Gilbert 5-325] 1 - 2 tab PO Q6HR PRN #36 tab PRN Reason: Pain Sennosides/Docusate Sodium [Senna Plus 8.6-50 mg Softgel] 1 each PO DAILY #20 capsule No Action metFORMIN HCL 500 mg PO DAILY@1200 Meloxicam [Mobic] 15 mg PO DAILY Levothyroxine Sodium [Synthroid] 150 mcg PO DAILY FLUoxetine HCL [PROzac] 20 mg PO DAILY@1200 traMADol HCL 50 mg PO Q12HR PRN PRN Reason: Pain Rosuvastatin [Crestor] 20 mg PO DAILY@1200 Ozempic (Unknown Dose) 1 dose SQ TH Omeprazole 40 mg PO DAILY@1200 Discharge Medication List FLUoxetine HCL [PROzac] 20 mg PO DAILY@1200 10/01/22 [History] Levothyroxine Sodium [Synthroid] 150 mcg PO DAILY 10/01/22 [History] Meloxicam [Mobic] 15 mg PO DAILY 10/01/22 [History] metFORMIN HCL 500 mg PO DAILY@1200 10/01/22 [History] Omeprazole 40 mg PO DAILY@1200 10/30/23 [History] Ozempic (Unknown Dose) 1 dose SQ TH 10/30/23 [History] Rosuvastatin [Crestor] 20 mg PO DAILY@1200 03/21/24 [History] traMADol HCL 50 mg PO Q12HR PRN 10/30/23 [History] Apixaban [Eliquis] 2.5 mg PO BID #60 tab 11/05/23 [Rx] HYDROcodone/APAP 5-325MG [Gilbert 5-325] 1 - 2 tab PO Q6HR PRN #36 tab 11/05/23 [Rx] Sennosides/Docusate Sodium [Senna Plus 8.6-50 mg Softgel] 1 each PO DAILY #20 capsule 11/05/23 [Rx] Follow up Appointment(s)/Referral(s): Kvng Gillis, DAYAN [PHYSICIAN [employer] MECHANIC] - 2 Weeks Patient Instructions/Handouts: Anterior Hip Replacement (DC), Anterior Hip Replacement (GEN) Activity/Diet/Wound Care/Special Instructions: Orthopedic Discharge Instructions: 1. Wound care and infection precautions, keep incision dry and covered while showering, no lotions, creams, moisturizers. No soaking, pools, hot tubs. Do not scrub over incision. 2. Weight-bear as tolerated with walker / cane until follow-up. 3. Ice and elevate when necessary. Do not exceed 20 minutes per hour with ice pack. 4. Utilize compression sleeve until seen at first follow up appointment. 5. Pain meds and anticoagulants per prescription. 6. Pain medication has potential to cause constipation. Increase oral fluid and fiber intake. Contact primary care provider if you have not had a bowel movement within 48 hours after discharge. 7. No anti-inflammatory medication until discussed at first post operative visi t, this including Motrin, Aleve, Mobic, Diclofenac. 8. Follow up in office at 2 weeks postop with Juanpablo Alvarado PA-C / Kvng Gillis PA-C 9. Follow up with your primary care doctor 7-10 days after discharge. 10. Contact [facility] with any questions, . Keep incision clean, dry, intact. While showering, cover fusion tape with Saran wrap. Keep fusion tape on until follow-up appointment office at 2 weeks. Discharge Disposition: HOME WITH HOME HEALTH SERVICES
[2023-11-05 09:06] VITALS: PULSE 75
[2023-11-05 11:15] LABS: Basophils # (A) 0.05 X 10*3/uL (0.00-0.10); Basophils % (A) 0.3 %; Eosinophils # (A) 0.04 X 10*3/uL (0.04-0.35); Eosinophils % (A) 0.2 %; HCT 37.5 % (37.2-46.3); HGB 12.4 g/dL (12.0-15.0); Lymphocytes # (A) 2.44 X 10*3/uL (0.90-5.00); Lymphocytes % (A) 12.4 %; MCH 30.5 pg (27.0-32.0); MCHC 33.1 g/dL (32.0-37.0); MCV 92.1 FL (80.0-97.0); Mean Platelet Volume 9.6 FL (9.5-12.2); Monocytes # (A) 0.95 X 10*3/uL (0.20-1.00); Monocytes % (A) 4.8 %; NRBC Per 100 WBC 0 X 10*3/uL (0.00-0.01); Neutrophils # (A) 16.13 X 10*3/uL (1.80-7.70); Neutrophils % (A) 81.8 %; Platelet Count 262 X 10*3/uL (140-440); RBC 4.07 X 10*6/uL (4.10-5.20); WBC 19.71 X 10*3/uL (4.50-10.00)
--- NOTE | 2023-11-05 12:01 | P.PN ---
Subjective Progress Note Date: 11/05/23 Principal diagnosis: Left hip osteoarthritis Patient seen at bedside this morning lying semirecumbent position the dressing present over left anterior hip. Patient says she has been up several times since surgery yesterday walk around the room and has urinated times without iss ue. Patient says she is looking forward to working with therapy earlier this morning. Patient hoping to go home today. patient says she does have a walker at home. Patient denies chest pain, fever, shortness breath, nausea, vomiting, change in vision, loss of bowel/bladder control. Objective - Vital Signs Vital signs: Vital Signs Temp 98.1 F 11/05/23 07:49 Pulse 74 11/05/23 07:49 Resp 17 11/05/23 07:49 BP 161/88 11/05/23 07:49 Pulse Ox 94 L 11/05/23 07:49 FiO2 Intake & Output 11/04/23 11/05/23 11/05/23 18:59 06:59 18:59 Intake Total 1050 Output Total 200 Balance 850 Weight 99.8 kg Intake: IV 1050 Output: Estimated Blood Loss 200 Other: Voiding Method Toilet # Voids 1 7 - Exam Left hip: Incision is clean, dry, and intact. The exofin fusion tape is in good condition. There is minimal soft tissue swelling and ecchymosis surrounding the medial and lateral aspects of the incision. Calf is soft, no tenderness with palpation. Plantar flexion, dorsiflexion, EHL, FHL are intact. Sensory exam to light touch throughout the extremity is intact, dorsal pedis pulses 2+. - Labs CBC & Chem 7: 11/05/23 08:07 Labs: Abnormal Lab Results - Last 24 Hours (Table) 11/05/23 Range/Units 06:04 POC Glucose (mg/dL) 112 H (70-110) mg/dL Assessment and Plan Assessment: 1. Left hip osteoarthritis - Postoperative day 1 status post direct anterior left total hip arthroplasty Plan: 1. Left hip osteoarthritis - direct anterior left total hip arthroplasty performed yesterday, 11/04/2023. Patient stable at bedside this mor hiren with dressing present to the left anterior hip. Patient does have a walker for home. Pending PT/OT eval, plan for discharge home today with health services. 2. Appreciate medical management 3. Pain management - [place]; Dilaudid only as needed 4. DVT prophylaxis -Xarelto in hospital. Going home with eliquis 2.5 mg twice a day 2 weeks 5. GI prophylaxis - senna 6. PT/OT - weightbearing as tolerated with walker 7. Encourage incentive spirometer use 8. Discharge planning - home today with health services Time with Patient: Less than 30
--- NOTE | 2023-11-05 12:09 | P.CONS ---
History of Present Illness - Reason for Consult Consult date: 11/05/23 Medical management - History of Present Illness History of present illness; patient is a 48-year-old lady with past medical history significant for diabetes mellitus, osteoarthritis, hypothyroidism who presented to hospital for elective left hip arthroplasty. Patient has been dealing with left hip pain for the last few years. Left hip pain is constant, gets aggravated with movement. Patient was being followed up outpatient with orthopedic surgery, all conservative measures had failed and patient decided to proceed with left hip arthroplasty for which patient presented to the hospital on 11/03 and underwent the procedure. Postoperatively the internal medicine team were consulted REVIEW OF SYSTEMS: CONSTITUTIONAL: No fever, no malaise, no fatigue. HEENT: No recent visual problems or hearing problems. Denied any sore throat. CARDIOVASCULAR: No chest pain, orthopnea, PND, no palpitations, no syncope. PULMONARY: No shortness of breath, no cough, no hemoptysis. GASTROINTESTINAL: No diarrhea, no nausea, no vomiting, no abdominal pain. NEUROLOGICAL: No headaches, no weakness, no numbness. HEMATOLOGICAL: Denies any bleeding or petechiae. GENITOURINARY: Denies any burning micturition, frequency, or urgency. MUSCULOSKELETAL/RHEUMATOLOGICAL: Left hip pain ENDOCRINE: Denies any polyuria or polydipsia. The rest of the 14-point review of systems is negative. PHYSICAL EXAMINATION: GENERAL: The patient is alert and oriented x3, not in any acute distress. Well developed, well nourished. HEENT: Pupils are round and equally reacting to light. EOMI. No scleral icterus. No conjunctival pallor. Normocephalic, atraumatic. No pharyngeal erythema. No thyromegaly. CARDIOVASCULAR: S1 and S2 present. No murmurs, rubs, or gallops. PULMONARY: Chest is clear to auscultation, no wheezing or crackles. ABDOMEN: Soft, nontender, nondistended, normoactive bowel sounds. No palpable organomegaly. MUSCULOSKELETAL: Left hip surgical incision seen EXTREMITIES: No cyanosis, clubbing, or pedal edema. NEUROLOGICAL: Gross neurological examination did not reveal any focal deficits. SKIN: No rashes. Assessment and plan Left hip osteoarthritis s/p left hip arthroplasty Hyperlipidemia Hypothyroidism Diabetes mellitus Monitor vital signs Monitor CBC Monitor CMP Resume Synthroid Resume Lipitor Monitor blood sugar levels, continue sliding scale insulin Continue pain management per orthopedics Continue DVT prophylaxis per orthopedics Resume home meds PT and OT consulted Labs and medication were reviewed.. Continue same treatment. Continue with symptomatic treatment. Resume home medication. Monitor labs and vitals. DVT and GI prophylaxis. Further recommendations as per clinical course of the patient Dictation was produced using [employer] dictation software. please excuse any grammatical, word or spelling errors. Past Medical History Past Medical History: Diabetes Mellitus, GERD/Reflux, Osteoarthritis (OA), Thyroid Disorder Additional Past Medical History / Comment(s): DIVERTICULOSIS, HX STOMACH ULCER, COLON POLYPS History of Any Multi-Drug Resistant Organisms: None Reported Past Surgical History: Orthopedic Surgery, Tonsillectomy Additional Past Surgical History / Comment(s): right knee (HEMATOMA), COLONOSCOPY WITH POLYPS., EGD Past Anesthesia/Blood Transfusion Reactions: No Reported Reaction Past Psychological History: Anxiety, Depression Additional Psychological History / Comment(s): . Smoking Status: Former smoker Past Alcohol Use History: Rare Additional Past Alcohol Use History / Comment(s): QUIT SMOKING 12 YEARS AGO(2004). SMOKED 1 PPD., SMOKED APPROX 20 YEARS. Past Drug Use History: Marijuana Additional Drug Use History / Comment(s): CURRENT MARIJUANA USE DAILY-INSTRUCTED TO REFRAIN FROM USE FOR AT LEAST 24 HOURS PRIOR TO PROCEDURE - Past Family History Father Family Medical History: Cancer Additional Family Medical History / Comment(s): Pancreatic Cancer Mother Family Medical History: Cancer Additional Family Medical History / Comment(s): Stomach Cancer Sister(s) Family Medical History: Cancer Additional Family Medical History / Comment(s): 1 SISTER= KIDNEY CANCER. 1 SISTER= TONGUE CANCER Medications and Allergies Home Medications Medication Instructions Recorded Confirmed Type FLUoxetine HCL [PROzac] 20 mg PO DAILY@119910/01/22 10/30/23 History Levothyroxine Sodium [Synthroid] 150 mcg PO DAILY 10/01/22 11/04/23 History Meloxicam [Mobic] 15 mg PO DAILY 10/01/22 10/30/23 History metFORMIN HCL 500 mg PO DAILY@119910/01/22 10/30/23 History Omeprazole 40 mg PO DAILY@119910/30/23 10/30/23 History Ozempic (Unknown Dose) 1 dose SQ TH 10/30/23 History Rosuvastatin [Crestor] 20 mg PO DAILY@119910/30/2324 History traMADol HCL 50 mg PO Q12HR PRN 10/30/23 10/30/23 History Apixaban [Eliquis] 2.5 mg PO BID #60 tab 11/05/23 Rx HYDROcodone/APAP 5-325MG [[place] 1 - 2 tab PO Q6HR PRN #36 tab 11/05/23 Rx 5-325] Sennosides/Docusate Sodium [Senna 1 each PO DAILY #20 capsule 11/05/23 Rx Plus 8.6-50 mg Softgel] Allergies Allergy/AdvReac Type Severity Reaction Status Date / Time No Known Allergies Allergy Verified 11/04/23 11:24 Physical Exam Vitals: Vital Signs Temp Pulse Pulse Resp BP Pulse Ox 11/05/23 07:49 98.1 F 74 17 161/88 94 L 11/05/23 07:30 75 74 17 11/05/23 02:59 98.5 F 64 18 150/79 97 11/04/23 18:53 98.3 F 63 20 176/80 97 11/04/23 17:06 98.3 F 75 18 150/79 97 11/04/23 16:28 60 16 117/68 98 11/04/23 16:13 66 16 114/65 100 11/04/23 15:58 63 16 115/57 100 11/04/23 15:43 75 16 100/59 99 11/04/23 15:28 98.1 F 72 16 112/55 98 11/04/23 12:11 81 16 127/63 97 11/04/23 11:31 97.9 F 73 16 138/70 97 Intake and Output 11/04/23 11/05/23 11/05/23 22:59 06:59 14:59 Intake Total 100 Output Total 200 Balance -100 Intake: IV 100 Output: Estimated Blood Loss 200 Other: Voiding Method Toilet Toilet # Voids 1 7 Weight 99.8 kg Results Labs: Abnormal Lab Results - Last 24 Hours (Table) 11/05/23 Range/Units 06:04 POC Glucose (mg/dL) 112 H (70-110) mg/dL
[2023-11-05] MEDS: ATORVASTATIN 40 MG TAB PO SCH (12:19)
== END 2023-11-05 12:28 | disposition home health service (06) ==
LOC: OR 11:07 → 4SSUR 15:21 → OR 11-05 12:28
PROVIDERS: ATTEND Orthopaedic Surgery
DX: M16.12 Unilateral primary osteoarthritis, left hip (principal); G89.18 Other acute postprocedural pain; K21.9 Gastro-esophageal reflux disease without esophagitis; E03.9 Hypothyroidism, unspecified; E11.69 Type 2 diabetes mellitus with other specified complication; E78.5 Hyperlipidemia, unspecified; F41.8 Other specified anxiety disorders; Z79.899 Other long term (current) drug therapy; Z79.1 Long term (current) use of non-steroidal anti-inflammatories (NSAID); Z79.85 Long-term (current) use of injectable non-insulin antidiabetic drugs; Z79.84 Long term (current) use of oral hypoglycemic drugs; Z79.890 Hormone replacement therapy; Z87.891 Personal history of nicotine dependence; Z79.01 Long term (current) use of anticoagulants
CPT/HCPCS: 27130; 94760; 97161; 97535; 97166; 64447; 81025; 85025; 73501; C1776; J2250; J1100; J0690 ×2; J2405; J3010; J2795; J2704; J1170; J2371

== ENCOUNTER → 2024-06-08 | Outpatient (CLI) | payer BC ==
--- NOTE | 2024-06-09 11:09 | MM ---
Reason for Exam: Screening (asymptomatic). Last mammogram was performed 14 year(s) and 8 month(s) ago. Patient History: Menarche at age 10. First Full-Term at age 23. Paternal grandmother had breast cancer. Risk Values: Hilda 5 year model risk: 1.1%. NCI Lifetime model risk: 9.7%. Prior Study Comparison: 09/26/2009 Bilateral Screening Mammogram, [facility]. Tissue Density: There are scattered areas of fibroglandular density. Findings: Analyzed By CAD. Right breast: There is no suspicious group of microcalcifications or new suspicious mass. Left breast: There is no suspicious group of microcalcifications or new suspicious mass. Overall Assessment: Negative, BI-RAD 1 Management: Screening Mammogram of both breasts in [address] [facility] will attempt to contact patient to return for supplemental views and ultrasound if indicated. Patient should continue monthly self-breast exams. A clinical breast exam by your physician is recommended on an annual basis. This exam should not preclude additional follow-up of suspicious palpable abnormalities. Note on Hilda scores and lifetime risk: 1. A Hilda score greater than 3% is considered moderate risk. If this is the case, consider specialist referral to assess eligibility for a risk reducing agent. 2. If overall lifetime risk for the development of breast cancer is 20% or higher, the patient may qualify for future screening with alternating mammogram and breast MRI. [facility], , 06/09/2024 11:04 AM. Electronically signed and approved by: Jimy Chambers DO
== END | disposition home or self-care (01) ==
LOC: RADMAMWWP 09:31
PROVIDERS: ATTEND Family Medicine
CPT/HCPCS: 77063; 77067